=== PATIENT | female | born 1960 | race Caucasian/White ===

== ENCOUNTER → 2016-10-28 | Outpatient (CLI) | payer OTHER ==
[~2016-10-28] MED LIST: ASCO1CAP3 PO; ASPI81TA28 PO; BIO CLEANSE PO; BUDE1TAB PO; CALC-20 PO; CHOL1000 PO; DEXL60CA4 PO; FLUO20CA36 PO; MISCCAP80 PO; MODA100T17 PO; OXYC-57 PO; PLV75 PO; THYR90TA PO
[2016-10-28 17:25] LABS: BLOOD UREA NITROGEN 15 mg/dl (7-18); CALCIUM 8.6 mg/dl (8.5-10.1); CARBON DIOXIDE 30 mmol/L (21-32); CHLORIDE 103 mmol/L (98-107); CREATININE 0.94 mg/dl (0.60-1.20); GLUCOSE 97 mg/dl (70-99); POTASSIUM 3.8 mmol/L (3.5-5.1); SODIUM 140 mmol/L (136-145)
[2016-10-28 17:35] LABS: THYROID STIMULATING HORMONE 0.929 uIu/ml (0.300-4.500)
[2016-10-28 17:52] LABS: URINE APPEARANCE TURBID (CLEAR); URINE BILIRUBIN NEG (NEG); URINE COLOR YELLOW; URINE EPITHELIAL CELL AUTO 20-30 /lpf (0-5); URINE NITRITE NEG (NEG); URINE SPECIFIC GRAVITY 1.024 (1.000-1.030); UROBILINOGEN NEG (NEG)
[2016-10-28 18:08] LABS: MANUAL MICROSCOPIC REQUIRED? NO; REVIEW REQ? NO
[2016-10-29 07:08] LABS: ESTIMATED AVERAGE GLUCOSE 123 mg/dl; HA1C FLAG Normal (Normal)
== END | disposition home or self-care (01) ==
LOC: C.LABBC 14:01
PROVIDERS: ATTEND Internal Medicine Geriatric Medicine
DX: R73.01 Impaired fasting glucose (principal); R39.9 Unspecified symptoms and signs involving the genitourinary system; E55.9 Vitamin D deficiency, unspecified; R10.9 Unspecified abdominal pain; R53.83 Other fatigue

== ENCOUNTER → 2017-06-23 | Outpatient (CLI) | payer OTHER ==
[~2017-06-23] MED LIST changes: +DIAZ-165 PO; +ESCI1TAB10 PO; +MELO7.5T5 PO; -OXYC-57 PO; +ROPI0.5T15 PO
--- NOTE | 2017-06-23 12:13 | EEG Procedure Note ---
EEG Procedure Note Date of Service Jun 23, 2017. Start / End Times Start Time: 10:38 AM End Time: 10:59 AM Referring Physician Rodriguez Morse History This is a 52-year-old female with seizure-like activity. EEG for further evaluation of possible seizure etiology. Home Medication List Scheduled Ascorbic Acid (Vitamin C), 500 MG PO QPM Aspirin (Aspirin Ec), 81 MG PO DAILY Budesonide (Uceris), 9 MG PO QAM Calcium Carbonate-Vitamin D (Calcium 600 + D), 1 TAB PO Q2D Cholecalciferol (Vitamin D3), 1 TAB PO QPM Clopidogrel Bisulfate (Clopidogrel), 75 MG PO QAM Dexlansoprazole (Dexilant), 60 MG PO QPM Fluoxetine HCl (Fluoxetine HCl), 40 MG PO QPM Modafinil (Provigil), 100 MG PO AM/NOON Probiotic Product (Probiotic), 1 TAB PO QPM Thyroid ([place] Thyroid), 90 MG PO QAM [Bio Cleanse], 1-2 TAB PO QPM Description This is a 21 electrode EEG with a single channel dedicated to limited EKG. The electrodes were placed in accordance with the International 10-20 system. At the start of the recording the patient was in an awake state. Background was well organized and composed of symmetric mixed alpha and beta frequencies. There was a symmetric well-formed moderate amplitude 9 Hz posterior dominant rhythm that was reactive to eye opening and closure. Hyperventilation was not done. Intermittent photic stimulation at various frequencies produced no abnormalities. There was no state changes or sleep transients. Interpretation This is a normal awake only routine EEG. There was no electrographic seizures or epileptiform discharges. Clinical Correlation A normal EEG does not rule out epilepsy if there is a strong clinical suspicion.
== END | disposition home or self-care (01) ==
LOC: C.NEUR 10:24
PROVIDERS: ATTEND Psychiatry & Neurology Neurology
DX: R56.9 Unspecified convulsions (principal)

== ENCOUNTER 2017-08-06 06:35 | Day surgery (SDC) | payer OTHER ==
[~2017-08-06] VITALS: Ht 162.6 cm; Wt 92.7 kg
[~2017-08-06 06:35] MED LIST changes: -ASPI81TA28 PO; -BUDE1TAB PO; +CEFAZOLIN 1000MG IV PUSH 5 ML IV SCH; -FLUO20CA36 PO; +LACTATED RINGER'S 1000ML 1,000 ML IV SCH
[2017-08-06] MEDS ORDERED: LORA-741 PO (07:14)
[2017-08-06] MEDS ORDERED: CBD Oil UT (07:14)
[2017-08-06 07:19] VITALS: BP 120/78; PULSE 65; TEMP 37.1; O2SAT 96; Ht 162.6 cm; Wt 92.7 kg
[2017-08-06] MEDS ORDERED: BACITRACIN 50000 UNIT VIAL ONE (07:51)
[2017-08-06] MEDS ORDERED: LIDOCAINE HCL 1% 20 ML VIAL ONE (07:51)
--- NOTE | 2017-08-06 08:14 | History & Physical Bridge Note ---
H&P Re-Evaluation Bridge Note: I have examined the patient, reviewed the History & Physical and in the interval since the performance of the History & Physical I have noted the following changes of clinical significance: No changes noted
--- NOTE | 2017-08-06 08:14 | Procedure Note ---
Pre-Mod Sedation Assessment General Date of Moderate Sedation: Aug 06, 2017. Vital Signs: Vital Signs Past 12 Hours Date Time Temp Pulse Resp B/P (MAP) Pulse Ox O2 Delivery O2 Flow Rate FiO2 08/06/17 07:19 37.1 65 18 120/78 (92) 96 Room Air Review Cardiovascular: regular rate, rhythm, no murmur Abdomen: soft Lungs: lungs clear Airway Class: II Pre-Sedation Airway Assessment Oral Cavity: WNL Short Thick Neck: No Hx of Sleep Apnea: No Smoking Status: Former Smoker Mallampati Classification: Class II ASA Classification: Class II Procedure Planning Contraindications-for Mod Sed: None Yes Notes The planned sedation has been discussed with the patient and consent obtained. I have identified the patient, determined the appropriateness of sedation and have assessed the patient immediately prior to the procedure. All medicine(s) and interventions are by my order.
--- NOTE | 2017-08-06 08:47 | [facility] Post Operative Brief Note ---
Immediate Operative Summary Operative Date Aug 06, 2017. Pre-Operative Diagnosis cryptogenic stroke Post-Operative Diagnosis same Procedure(s) Performed linq extraction Surgeon dustin haas Baffle Mounter Surgeon(s) none Estimated Blood Loss none Findings see official report Fluids (cc crystalloids) 200cc Specimens none Drains none Anesthesia local lidocaine 20cc Complication(s) None Disposition asu
--- NOTE | 2017-08-06 08:47 | Procedure Note ---
Post-Mod Sedation Assessment General Date of Moderate Sedation Aug 06, 2017. Vital Signs: Vital Signs Past 12 Hours Date Time Temp Pulse Resp B/P (MAP) Pulse Ox O2 Delivery O2 Flow Rate FiO2 08/06/17 07:19 37.1 65 18 120/78 (92) 96 Room Air Review - Discharge Criteria Vital Signs Stable: Yes Alert/Oriented/Conversant: Yes Returned to Baseline Mental St: Yes Nausea Absent/Minimal: Yes Pain/Discomfort/Absent/Minimal: Yes Normal/Baseline Respirations: Yes Active Bleeding?: No Pt Received D/C Instructions: Yes Prescriptions Given: None Specific Proced. D/C Criteria Distal Pulses Present (Cardiac: N/A Groin site assessed-Card Cath: N/A Voided Prior To Discharge: N/A Discharged Patients Adult Escort/Transportation: Yes
--- NOTE | 2017-08-06 08:49 | Discharge Instructions ---
Discharge Instructions Procedure Procedure Date: Aug 06, 2017. Reason for Visit: *Loop Removal* Krictogenic Stroke. Discharge Discharge Date: Aug 06, 2017. Discharge Diagnosis: cryptogenic stroke Last Recorded Wt (Kilograms): 92.7 Anesthesia Post Anesthesia Instructions: If you have had General Anesthesia or IV Sedation: * Do not drive today. * Resume driving when surgeon permits. * Do not make important decisions or sign legal documents today. * Call surgeon for: 1. Temperature elevations greater than 101 degrees F. 2. Uncontrollable pain. 3. Excessive bleeding. 4. Persistent nausea and vomiting. 5. Medication intolerance (nausea, vomiting or rash). * For nausea and vomiting use only clear liquids such as: tea, soda, bouillon until nausea subsides, then gradually increase diet as tolerated. * If you have any concerns or questions, call your surgeon's office. If physician is unavailable and it is an emergency, call 911 or go to the nearest emergency room. Instructions Activity Recommendations: resume regular activity, shower/bathe limit (can shower tomorrow let water run over the incision do not scrub it) Recommended Home Diet: resume previous diet Allergies: Coded Allergies: Levofloxacin (Verified Allergy, Severe, ANAPHYLAXIS, 08/06/17) Morphine (Verified Allergy, Severe, ANAPHYLAXIS, 08/06/17) Penicillins (Verified Allergy, Intermediate, AMPICILLIN,AMOXICILLIN--Hives , 08/06/17) Fentanyl (Verified Allergy, Unknown, "VERY SENSITIVE TO" FENTANYL, ) Milk (Verified Allergy, Unknown, RASH, 08/06/17) Sulfa Antibiotics (Verified Adverse Reaction, Intermediate, GI SYMPTOMS, 08/06/17) Provider Instructions ACTIVITY RECOMMENDATIONS: * None SPECIAL CARE INSTRUCTIONS: * If bleeding occurs, apply direct pressure to area for 5 minutes. * Call your doctor if you have severe pain, fever, drainage or bleeding at site. * Keep dry for 24 hours. * Keep any scheduled doctor's appointment. * Implant Card - hand held device with website information given. SKIN IRRITATION: * You may experience some redness and/or swelling in the area where radiation was administered. If any skin irritation occurs, please contact your family physician. FOLLOW UP VISIT: Keep any scheduled doctor appointments. Follow Up Mi Booker Recommendations: Call your doctor if: * Temperature above 101 degrees * Pain not relieved by pain medicine ordered * There is increased drainage or redness from any incision * You have any unanswered questions or concerns. Your Doctors Instructions noted above were prepared by provider Jeimy Espinoza. Patient Signature Section: Patient Instructions Signature Page Marylou Jessica Patient (or Guardian) Signature/Date: I have read and understand the instructions given to me by my caregivers. Caregiver/RN/Doctor Signature/Date: The above-named patient and/or guardian has received patient instructions on this date. + Original Patient Signature Page (only) stays with chart. Please make copy for patient.
[2017-08-06 08:55] VITALS: BP 120/65; PULSE 53; TEMP 36.7; O2SAT 97
--- NOTE | 2017-08-06 09:07 | OPERATIVE REPORT ---
DATE OF OPERATION: 08/06/2017 PREOPERATIVE DIAGNOSIS: Cryptogenic stroke. POSTOPERATIVE DIAGNOSIS: Same. PROCEDURE: LINQ extraction. SURGEON: Dr. Jeimy Espinoza. SANDING MACHINE OPERATOR: None. ANESTHESIA: Local anesthesia only, 20 mL of 1% lidocaine. BLOOD LOSS: None. COMPLICATIONS: None. CONDITION: Stable. URINE OUTPUT: Not applicable. SPECIMENS: None. FINDINGS: See below. DRAINS: None. INDICATIONS: This 56-year-old female who has a past medical history for cryptogenic stroke and she underwent LINQ insertion about a year ago. She was found that the etiology of the stroke was not Afib or any arrhythmia. 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 CONSENT: Consent was obtained prior to the patient going into the electrophysiology lab. The patient was informed of risks, benefits, alternatives to the procedure. Risks include but not limited to bleeding and infection. The patient understood these risks and agreed to the procedure as planned. Informed consent was obtained. DESCRIPTION OF THE PROCEDURE: The patient was brought into the electrophysiology lab in fasting state. She was connected to continuous supervisor sunglasses. A time out was performed to ensure patient identity and procedure correctly. The patient was prepped and draped over the left sternal border in the normal surgical standard fashion. [place] precautions were maintained throughout the procedure. Twenty mL of 1% lidocaine local was given over the prior surgical incision and infiltrated where the LINQ area was for local anesthesia. Then incision was made over the prior surgical incision then using blunt dissection the LINQ was extracted out being pulled out with a Loan clamp. The pocked was flushed with bacitracin saline wash and then the incision was closed with 3-0 interrupted suture followed by a 4-0 Monocryl running stitch and Dermabond was applied. IMPRESSION: Successful LINQ extraction. PLAN: She can be discharged home. She can shower tomorrow. No other restrictions. She can continue her home medications and follow with general cardiology. I attest to the content of the Intraoperative Record and any orders documented therein. Any exceptions are noted below. JACKIED
[2017-08-06 09:15] VITALS: BP 120/65; PULSE 61; TEMP 36.5; O2SAT 96
[2017-08-06] MEDS ORDERED: NURSING VERBAL MED ORDER ONE (12:30)
== END 2017-08-06 09:20 | disposition home or self-care (01) ==
LOC: C.ACU 06:35
PROVIDERS: ATTEND Internal Medicine
DX: I63.9 Cerebral infarction, unspecified (principal); I69.398 Other sequelae of cerebral infarction; R20.9 Unspecified disturbances of skin sensation; G47.33 Obstructive sleep apnea (adult) (pediatric); E05.00 Thyrotoxicosis with diffuse goiter without thyrotoxic crisis or storm; E78.5 Hyperlipidemia, unspecified; Z88.5 Allergy status to narcotic agent; Z88.0 Allergy status to penicillin; Z88.2 Allergy status to sulfonamides; Z79.899 Other long term (current) drug therapy

== ENCOUNTER → 2017-09-27 | Day surgery (SDC) | payer OTHER ==
[2017-09-21 14:02] VITALS: BMI 34.0
[~2017-09-27] VITALS: Ht 162.6 cm; Wt 90.9 kg
[~2017-09-27] MED LIST changes: +ASA PO; +ASCA500 PO; +CALC600T9 PO; +CBD Oil UT; -CEFAZOLIN 1000MG IV PUSH 5 ML IV SCH; +CLOP1TAB15 PO; +ESCI1TAB18 PO; +GABA1CAP PO; -LACTATED RINGER'S 1000ML 1,000 ML IV SCH; +LIDOCAINE HCL 2% 2 ML VIAL (20MG/ML) ONE; +LORA-741 PO; +MIDAZOLAM HCL 1 MG/ML 2ML VIAL ONE; +MOME100A INH; +ONDANSETRON INJ 2 MG/ML 2 ML VIAL ONE; +PROB1TAB16 PO; +PROPOFOL IV EMULSION 10 MG/ML 20 ML VIAL IV ONE; +SODIUM CHLORIDE 0.9% 500ML 500 ML IV ONE
[2017-09-27 09:40] VITALS: Ht 162.6 cm; Wt 90.9 kg
--- NOTE | 2017-09-27 10:01 | Endo History and Physical ---
History & Physical Date of Service: Sep 27, 2017. Chief Complaint: Bright red rectal bleeding Referring Physician: Dr. Tushar Holloway History of Present Illness 56 yo CF who presents for colonoscopy secondary to bright red rectal bleeding. Past Medical History Gastrointestinal Disorder, Anxiety, Reflux, High Cholesterol, Sleep Apnea, COPD , Thyroid Disease, CVA/TIA Past Surgical History Hx Cardiac Surgery: Yes (HEART CATH, NO STENTS; LOOP RECORDER PLACED AND REMOVED) Hx Internal Defibrillator: No Hx Pacemaker: No Hx Abdominal Surgery: Yes (ANGELY, PARTIAL COLON RESECTION, DEAN BSO) Hx of Implantable Prosthesis: No Hx Post-Op Nausea and Vomiting: No Hx Cancer Surgery: No Hx Thoracic Surgery: No Hx Orthopedic: Yes (RT RCR, LT VS RT(?) KNEE SCOPE) Hx Urinary Tract Surgery: No Family History Colon CA, IBD Social History Smoking Status: Former Smoker Hx Substance Use: No Hx Alcohol Use: No Allergies Coded Allergies: Levofloxacin (Verified Allergy, Severe, ANAPHYLAXIS, 09/27/17) Morphine (Verified Allergy, Severe, ANAPHYLAXIS, 09/27/17) Penicillins (Verified Allergy, Intermediate, AMPICILLIN,AMOXICILLIN--Hives , 09/27/17) Cephalexin (Verified Allergy, Unknown, RASH, 09/27/17) Fentanyl (Verified Allergy, Unknown, "VERY SENSITIVE TO" FENTANYL, ) Milk (Verified Allergy, Unknown, RASH, 09/27/17) Sulfa Antibiotics (Verified Adverse Reaction, Intermediate, GI SYMPTOMS, 09/27/17) Current Medications Reported Home Medications Medications Dose Route/Sig Max Daily Dose Days Date Category [Asa] 81 PO QD 09/27/17 Reported Requip (Ropinirole HCl) 0.5 Mg Tab 0.5 Mg PO HS 09/21/17 Reported Probiotic (Probiotic Product) 1 Tab Tab 1 Tab PO DAILY 09/21/17 Reported Provigil (Modafinil) 100 Mg Tab 2 Tabs PO QAM 09/21/17 Reported Mobic (Meloxicam) 7.5 Mg Tab 7.5 Mg PO QAM 09/21/17 Reported Ativan (Lorazepam) 0.5 Mg Tab 0.5 Mg PO HS PRN 09/21/17 Reported Lexapro (Escitalopram Oxalate) 20 Mg Tab 20 Mg PO QPM 09/21/17 Reported Neurontin (Gabapentin) 100 Mg Cap 2 Cap PO HS 09/21/17 Reported Dulera 100/5 Mcg (Mometasone Furoate-Formoterol) 1 Aer Aer 1 Aer INH BID PRN 09/21/17 Reported [place] Thyroid (Thyroid) 90 Mg Tab 1 Tab PO QAM 09/21/17 Reported Valium (Diazepam) 5 Mg Tab 5 Mg PO TID PRN 09/21/17 Reported Dexilant (Dexlansoprazole) 60 Mg Cap 1 Cap PO QPM 09/21/17 Reported Plavix (Clopidogrel Bisulfate) 75 Mg Tab 75 Mg PO QAM 09/21/17 Reported Vitamin D3 (Cholecalciferol) 1,000 Unit Tab 1 Tab PO DAILY 09/21/17 Reported Calcium + D (Calcium Carbonate-Vitamin D) 1 Tab Tab 1 Tab PO DAILY 09/21/17 Reported Vitamin C (Ascorbic Acid) 500 Mg Tab 1 Tab PO DAILY 09/21/17 Reported [CBD Oil] 3 Drops [place] DAILY 08/06/17 Reported Vital Signs Weight (Kilograms): 90.91 Height (Feet): 5 Height (Inches): 4 Physical Exam General Appearance: WD/WN, no apparent distress Respiratory/Chest: Auscultation: breath sounds normal Cardiovascular: Heart Auscultation: RRR Abdomen: Bowel Sounds: normal Inspection & Palpation: soft, non-distended, no tenderness, guarding & rebound Assessment and Plan Assessment: 56 yo CF who presents for colonoscopy secondary to bright red rectal bleeding. Plan: Proceed with colonoscopy.
--- NOTE | 2017-09-27 10:32 | Discharge Instructions ---
Endoscopy Patient Instructions Date / Procedure(s) Performed Sep 27, 2017. Colonoscopy, EGD Allergy Information Coded Allergies: Levofloxacin (Verified Allergy, Severe, ANAPHYLAXIS, 09/27/17) Morphine (Verified Allergy, Severe, ANAPHYLAXIS, 09/27/17) Cephalexin (Verified Allergy, Intermediate, RASH, 09/27/17) Milk (Verified Allergy, Intermediate, RASH, 09/27/17) Penicillins (Verified Allergy, Intermediate, AMPICILLIN,AMOXICILLIN--Hives , 09/27/17) Fentanyl (Verified Adverse Reaction, Intermediate, "VERY SENSITIVE TO" FENTANYL, 09/27/17) Sulfa Antibiotics (Verified Adverse Reaction, Intermediate, GI SYMPTOMS, 09/27/17) Discharge Date / Findings Sep 27, 2017. Diverticulosis Internal hemorrhoids Proctosigmoiditis s/p biopsies Random colon biopsies Medication Instructions Stopped Medication(s): PLAVIX and ASA OK to resume all medications today as prescribed Reported Home Medications Medications Dose Route/Sig Max Daily Dose Days Date Category [Asa] 81 PO QD 09/27/17 Reported Requip (Ropinirole HCl) 0.5 Mg Tab 0.5 Mg PO HS 09/21/17 Reported Probiotic (Probiotic Product) 1 Tab Tab 1 Tab PO DAILY 09/21/17 Reported Provigil (Modafinil) 100 Mg Tab 2 Tabs PO QAM 09/21/17 Reported Mobic (Meloxicam) 7.5 Mg Tab 7.5 Mg PO QAM 09/21/17 Reported Ativan (Lorazepam) 0.5 Mg Tab 0.5 Mg PO HS PRN 09/21/17 Reported Lexapro (Escitalopram Oxalate) 20 Mg Tab 20 Mg PO QPM 09/21/17 Reported Neurontin (Gabapentin) 100 Mg Cap 2 Cap PO HS 09/21/17 Reported Dulera 100/5 Mcg (Mometasone Furoate-Formoterol) 1 Aer Aer 1 Aer INH BID PRN 09/21/17 Reported [place] Thyroid (Thyroid) 90 Mg Tab 1 Tab PO QAM 09/21/17 Reported Valium (Diazepam) 5 Mg Tab 5 Mg PO TID PRN 09/21/17 Reported Dexilant (Dexlansoprazole) 60 Mg Cap 1 Cap PO QPM 09/21/17 Reported Plavix (Clopidogrel Bisulfate) 75 Mg Tab 75 Mg PO QAM 09/21/17 Reported Vitamin D3 (Cholecalciferol) 1,000 Unit Tab 1 Tab PO DAILY 09/21/17 Reported Calcium + D (Calcium Carbonate-Vitamin D) 1 Tab Tab 1 Tab PO DAILY 09/21/17 Reported Vitamin C (Ascorbic Acid) 500 Mg Tab 1 Tab PO DAILY 09/21/17 Reported [CBD Oil] 3 Drops UT DAILY 08/06/17 Reported Provider Instructions Activity Restrictions - No exercising or heavy lifting for 24 hours. - Do not drink alcohol the day of the procedure. - Do not drive a car or operate machinery until the day after the procedure. - Do not make any important decisions or sign important papers in 24 hours after the procedure. Following Day: - Return to full activity which may include returning to work/school. Diet Start your diet with liquids and light foods (jello, soup, juice, toast). Then eat your usual diet if not nauseated. Treatment For Common After Affects For mild abdominal pain, bloating, or excessive gas: - Rest - Eat lightly - Lie on right side Follow-Up Information Follow-up with LEVY DANIELS as scheduled Anesthesia Information What You Should Know You have had a procedure that required some medicine to reduce anxiety and discomfort. This treatment is called moderate sedation. After receiving the treatment, you may be sleepy, but you will be able to breathe on your own. The effects of the treatment may last for several hours. Follow these instructions along with Activity/Diet recommendations noted above: * Do NOT do anything where dizziness or clumsiness would be dangerous. * Rest quietly at home today, then you can be up and about tomorrow. * Have a responsible person stay with you the rest of today. * You may have had an I.V. today. If so, you may take the dressing off later today. Recommendations Call your doctor if: * Trouble breathing * Continuous vomiting for more than 24 hours * Temperature above 101 degrees * Severe abdominal pain or bloating * Pain not relieved by pain medicine ordered * There is increased drainage or redness from any incision * A large amount of rectal bleeding greater than 2-3 tablespoons. (If you had a polyp/s removed or have hemorrhoids, a small amount of blood - from the rectum is to be expected.) * You have any unanswered questions or concerns. IN THE EVENT OF A SERIOUS EMERGENCY, GO TO THE NEAREST EMERGENCY ROOM Your discharge instructions were prepared by provider Martin G. Case. Patient Instructions Signature Page Marylou Lopez Patient (or Guardian) Signature/Date: I have read and understand the instructions given to me by my caregivers. Caregiver/RN/Doctor Signature/Date: The above-named patient and/or guardian has received patient instructions on this date. + Original Patient Signature Page (only) stays with chart. Please make copy for patient.
--- NOTE | 2017-09-27 10:44 | GI REPORT ---
Procedure Date: 09/27/2017 9:50 AM Procedure: Colonoscopy Indications: Rectal bleeding Medicines: Monitored Anesthesia Care Complications: No immediate complications. Estimated Blood Loss: Estimated blood loss: none. Procedure: Pre-Anesthesia Assessment: - Prior to the procedure, a History and Physical was performed, and patient medications and allergies were reviewed. The patient's tolerance of previous anesthesia was also reviewed. The risks and benefits of the procedure and the sedation options and risks were discussed with the patient. All questions were answered, and informed consent was obtained. Prior Anticoagulants: The patient last took aspirin 1 day and Plavix (clopidogrel) 5 days prior to the procedure. ASA Grade Assessment: III - A patient with severe systemic disease. After reviewing the risks and benefits, the patient was deemed in satisfactory condition to undergo the procedure. After I obtained informed consent, the scope was passed under direct vision. Throughout the procedure, the patient's blood pressure, pulse, and oxygen saturations were monitored continuously. The scope was introduced through the anus and advanced to the terminal ileum. The colonoscopy was performed without difficulty. The patient tolerated the procedure well. The quality of the bowel preparation was good. The terminal ileum, ileocecal valve, appendiceal orifice, and rectum were photographed. Findings: The perianal and digital rectal examinations were normal. Localized mild inflammation characterized by erosions and erythema was found in the rectum and in the sigmoid colon. Biopsies were taken with a cold forceps for histology. Several random biopsies were obtained with cold forceps for histology randomly in the descending colon, in the transverse colon and in the ascending colon. Multiple small-mouthed diverticula were found in the sigmoid colon. Non-bleeding internal hemorrhoids were found during retroflexion. The hemorrhoids were small. Impression: - Localized mild inflammation was found in the rectum and in the sigmoid colon secondary to colitis. Biopsied. - Diverticulosis in the sigmoid colon. - Non-bleeding internal hemorrhoids. - Several random biopsies were obtained in the descending colon, in the transverse colon and in the ascending colon. Recommendation: - Resume previous diet. - Continue present medications. - Repeat colonoscopy for surveillance based on pathology results. - Return to primary care physician as previously scheduled. Martin Arellano DO 09/27/2017 10:44:01 AM This report has been signed electronically. Note Initiated On: 09/27/2017 9:50 AM I attest to the content of the Intraoperative Record and orders documented therein, exceptions below
--- NOTE | 2017-09-27 10:52 | Anesthesiology Progress Note ---
Anesthesia Post Op Note Date & Time Sep 27, 2017 at 10:52 Vital Signs Pain Intensity: 3 Vital Signs Past 12 Hours Date Time Temp Pulse Resp B/P (MAP) Pulse Ox O2 Delivery O2 Flow Rate FiO2 09/27/17 10:31 58 16 92/50 (64) 96 Room Air 09/27/17 10:03 36.5 92 20 132/69 (90) 97 Room Air
[2017-09-27 11:00] VITALS: BP 113/67; PULSE 59; O2SAT 97
== END | disposition home or self-care (01) ==
LOC: C.GI 09:10
PROVIDERS: ATTEND Internal Medicine
DX: K62.5 Hemorrhage of anus and rectum (principal); K57.30 Diverticulosis of large intestine without perforation or abscess without bleeding; K64.8 Other hemorrhoids; K21.9 Gastro-esophageal reflux disease without esophagitis; F41.9 Anxiety disorder, unspecified; E78.00 Pure hypercholesterolemia, unspecified; K22.70 Barrett's esophagus without dysplasia; J44.9 Chronic obstructive pulmonary disease, unspecified; E03.9 Hypothyroidism, unspecified; R56.9 Unspecified convulsions; G47.33 Obstructive sleep apnea (adult) (pediatric); Z86.73 Personal history of transient ischemic attack (TIA), and cerebral infarction without residual deficits; Z90.49 Acquired absence of other specified parts of digestive tract; Z90.710 Acquired absence of both cervix and uterus; Z80.0 Family history of malignant neoplasm of digestive organs; Z87.891 Personal history of nicotine dependence; Z88.0 Allergy status to penicillin; Z88.1 Allergy status to other antibiotic agents; Z88.2 Allergy status to sulfonamides; Z79.82 Long term (current) use of aspirin; Z86.19 Personal history of other infectious and parasitic diseases

== ENCOUNTER → 2017-10-29 | Outpatient (CLI) | payer OTHER ==
[~2017-10-29] MED LIST changes: -ASCO1CAP3 PO; -BIO CLEANSE PO; -CALC-20 PO; -ESCI1TAB10 PO; -LIDOCAINE HCL 2% 2 ML VIAL (20MG/ML) ONE; -MIDAZOLAM HCL 1 MG/ML 2ML VIAL ONE; -MISCCAP80 PO; -ONDANSETRON INJ 2 MG/ML 2 ML VIAL ONE; -PLV75 PO; -PROPOFOL IV EMULSION 10 MG/ML 20 ML VIAL IV ONE; -SODIUM CHLORIDE 0.9% 500ML 500 ML IV ONE
[2017-10-29 16:54] LABS: BASO % 0.8 %; BASO ABS # 0.07 K/uL (0-0.2); EOS % 3.6 %; HEMATOCRIT 41.9 % (37-47); HEMOGLOBIN 13.6 g/dL (12.0-16.0); IG# 0.03 K/uL (0.00-0.02); LYMPH % 27.5 %; LYMPH ABS # 2.27 K/uL (1.2-3.4); MEAN CELL VOLUME 94.6 fL (80-100); MEAN CORPUSCULAR HEMOGLOBIN 30.7 pg (25-34); MEAN CORPUSCULAR HGB CONC 32.5 g/dl (32-36); MEAN PLATELET VOLUME 9.6 fL (7.4-10.4); MONO % 7.3 %; NEUT % 60.4 %; NEUT ABS # 4.97 K/uL (1.4-6.5); PLATELET COUNT 308 K/uL (130-400); RED CELL DISTRIBUTION WIDTH CV 14.4 % (11.5-14.5); RED CELL DISTRIBUTION WIDTH SD 49.4 fL (36.4-46.3); WHITE BLOOD COUNT 8.24 K/uL (4.8-10.8)
[2017-10-29 17:07] LABS: ALBUMIN 3.4 gm/dl (3.4-5.0); ALT/SGPT 20 U/L (12-78); BLOOD UREA NITROGEN 16 mg/dl (7-18); CARBON DIOXIDE 27 mmol/L (21-32); CHOLESTEROL 219 mg/dl (0-200); CREATININE 1.08 mg/dl (0.60-1.20); GLUCOSE 131 mg/dl (70-99); POTASSIUM 3.8 mmol/L (3.5-5.1); SODIUM 138 mmol/L (136-145)
[2017-10-29 17:16] LABS: ALKALINE PHOSPHATASE 100 U/L (45-117); AST/SGOT 13 U/L (15-37); LDL CHOLESTEROL CALCULATED 133 mg/dl; TOTAL PROTEIN 7.1 gm/dl (6.4-8.2)
== END | disposition home or self-care (01) ==
LOC: C.LABBC 14:24
PROVIDERS: ATTEND Internal Medicine
DX: E03.9 Hypothyroidism, unspecified (principal); K52.9 Noninfective gastroenteritis and colitis, unspecified; E78.5 Hyperlipidemia, unspecified; F43.20 Adjustment disorder, unspecified; I63.9 Cerebral infarction, unspecified; R53.83 Other fatigue; R73.09 Other abnormal glucose; F39 Unspecified mood [affective] disorder; Z68.34 Body mass index [BMI] 34.0-34.9, adult

== ENCOUNTER → 2017-12-28 | Outpatient (CLI) | payer OTHER ==
[~2017-12-28] MED LIST changes: +GABA100C13 PO; -GABA1CAP PO
== END | disposition home or self-care (01) ==
LOC: C.LAB 16:19
PROVIDERS: ATTEND Registered Nurse
DX: E03.9 Hypothyroidism, unspecified (principal); Z87.19 Personal history of other diseases of the digestive system; K52.9 Noninfective gastroenteritis and colitis, unspecified; K62.5 Hemorrhage of anus and rectum

== ENCOUNTER → 2018-02-01 | Day surgery (SDC) | payer OTHER ==
[2018-01-26 13:52] VITALS: Ht 162.6 cm; Wt 93.2 kg
[~2018-02-01] VITALS: Ht 162.6 cm; Wt 93.2 kg
[~2018-02-01] MED LIST changes: -ASCA500 PO; -CALC600T9 PO; -CBD Oil UT; +COEN100C7 PO; -DIAZ-165 PO; +LIDOCAINE HCL 2% 2 ML VIAL (20MG/ML) ONE; +PROPOFOL IV EMULSION 10 MG/ML 20 ML VIAL IV ONE; +SODIUM CHLORIDE 0.9% 500ML 500 ML IV ONE; +THY/120 PO
--- NOTE | 2018-02-01 11:43 | Endo History and Physical ---
History & Physical Date of Service: Feb 01, 2018. Chief Complaint: Acute Diverticulitis Referring Physician: Tushar Holloway History of Present Illness 57 yo CF who presents for colonoscopy secondary to acute diverticulitis. Past Medical History Gastrointestinal Disorder, Anxiety, Reflux, High Cholesterol, Sleep Apnea, COPD , Thyroid Disease, CVA/TIA Past Surgical History Hx Cardiac Surgery: Yes (HEART CATH, NO STENTS; LOOP RECORDER PLACED AND REMOVED) Hx Internal Defibrillator: No Hx Pacemaker: No Hx Abdominal Surgery: Yes (ANGELY, PARTIAL COLON RESECTION, DEAN BSO, APPENDECTOMY) Hx of Implantable Prosthesis: No Hx Post-Op Nausea and Vomiting: No Hx Cancer Surgery: No Hx Thoracic Surgery: No Hx Orthopedic: Yes (RT RCR, LT VS RT(?) KNEE SCOPE, RT KNEE MENSCIUS REPAIR) Hx Urinary Tract Surgery: No Family History Colon CA, IBD Social History Smoking Status: Former Smoker Hx Substance Use: No Hx Alcohol Use: No Allergies Coded Allergies: Levofloxacin (Verified Allergy, Severe, ANAPHYLAXIS, 01/26/18) Morphine (Verified Allergy, Severe, ANAPHYLAXIS, 01/26/18) Cephalexin (Verified Allergy, Intermediate, RASH, 01/26/18) Milk (Verified Allergy, Intermediate, RASH, 01/26/18) Penicillins (Verified Allergy, Intermediate, AMPICILLIN,AMOXICILLIN--Hives , 01/26/18) Fentanyl (Verified Adverse Reaction, Intermediate, "VERY SENSITIVE TO" FENTANYL, 01/26/18) Sulfa Antibiotics (Verified Adverse Reaction, Intermediate, GI SYMPTOMS, ) Current Medications Reported Home Medications Medications Dose Route/Sig Max Daily Dose Days Date Category Dose Instructions [place] Thyroid (Thyroid) 120 Mg Tab 1 Tab PO Q2D 01/26/18 Reported Coq10 (Coenzyme Q10 (Ubidecarenone)) 100 Mg Cap 1 Tab PO QPM 01/26/18 Reported Requip (Ropinirole HCl) 0.5 Mg Tab 0.5 Mg PO HS 09/21/17 Reported Probiotic (Probiotic Product) 1 Tab Tab 1 Tab PO DAILY 09/21/17 Reported Provigil (Modafinil) 100 Mg Tab 2 Tabs PO QAM 09/21/17 Reported Mobic (Meloxicam) 7.5 Mg Tab 7.5 Mg PO QPM 09/21/17 Reported Ativan (Lorazepam) 0.5 Mg Tab 0.5 Mg PO HS PRN 09/21/17 Reported Lexapro (Escitalopram Oxalate) 20 Mg Tab 20 Mg PO QPM 09/21/17 Reported Neurontin (Gabapentin) 100 Mg Cap 2 Cap PO HS 09/21/17 Reported Dulera 100/5 Mcg (Mometasone Furoate-Formoterol) 1 Aer Aer 1 Aer INH BID PRN 09/21/17 Reported [place] Thyroid (Thyroid) 90 Mg Tab 1 Tab PO Q2D 09/21/17 Reported ALTERNATES BETWEEN 90MG AND 120MG EVERY OTHER DAY Dexilant (Dexlansoprazole) 60 Mg Cap 1 Cap PO QPM 09/21/17 Reported Plavix (Clopidogrel Bisulfate) 75 Mg Tab 75 Mg PO QAM 09/21/17 Reported Vitamin D3 (Cholecalciferol) 1,000 Unit Tab 1 Tab PO DAILY 09/21/17 Reported Vital Signs Weight (Kilograms): 93.18 Height (Feet): 5 Height (Inches): 4 Physical Exam General Appearance: WD/WN, no apparent distress Respiratory/Chest: Auscultation: breath sounds normal Cardiovascular: Heart Auscultation: RRR Abdomen: Bowel Sounds: normal Inspection & Palpation: soft, non-distended, no tenderness, guarding & rebound Assessment and Plan Assessment: 57 yo CF who presents for colonoscopy secondary to acute diverticulitis. Plan: Proceed with colonoscopy.
--- NOTE | 2018-02-01 12:49 | GI REPORT ---
Procedure Date: 02/01/2018 12:00 PM Procedure: Colonoscopy Indications: Follow-up of diverticulitis Medicines: Monitored Anesthesia Care Complications: No immediate complications. Estimated Blood Loss: Estimated blood loss: none. Procedure: Pre-Anesthesia Assessment: - Prior to the procedure, a History and Physical was performed, and patient medications and allergies were reviewed. The patient's tolerance of previous anesthesia was also reviewed. The risks and benefits of the procedure and the sedation options and risks were discussed with the patient. All questions were answered, and informed consent was obtained. Prior Anticoagulants: The patient last took aspirin 1 day and Plavix (clopidogrel) 3 days prior to the procedure. ASA Grade Assessment: III - A patient with severe systemic disease. After reviewing the risks and benefits, the patient was deemed in satisfactory condition to undergo the procedure. After I obtained informed consent, the scope was passed under direct vision. Throughout the procedure, the patient's blood pressure, pulse, and oxygen saturations were monitored continuously. The scope was introduced through the anus and advanced to the terminal ileum. The colonoscopy was performed without difficulty. The patient tolerated the procedure well. The quality of the bowel preparation was good. The terminal ileum, ileocecal valve, appendiceal orifice, and rectum were photographed. Findings: The perianal and digital rectal examinations were normal. The terminal ileum appeared normal. Biopsies were taken with a cold forceps for histology. A localized area of mildly altered vascular and erythematous mucosa was found in the sigmoid colon. Biopsies were taken with a cold forceps for histology. Multiple small-mouthed diverticula were found in the sigmoid colon. Multiple random biopsies were obtained with cold forceps for histology in the descending colon, in the transverse colon and in the ascending colon. Non-bleeding internal hemorrhoids were found during retroflexion. The hemorrhoids were small. Impression: - The examined portion of the ileum was normal. Biopsied. - Altered vascular and erythematous mucosa in the sigmoid colon. Biopsied. - Diverticulosis in the sigmoid colon. - Non-bleeding internal hemorrhoids. - Multiple random biopsies were obtained in the descending colon, in the transverse colon and in the ascending colon. Recommendation: - Resume previous diet. - Continue present medications. - Repeat colonoscopy for surveillance based on pathology results. - Return to primary care physician as previously scheduled. Martin Arellano DO 02/01/2018 12:49:22 PM This report has been signed electronically. Note Initiated On: 02/01/2018 12:00 PM I attest to the content of the Intraoperative Record and orders documented therein, exceptions below
[2018-02-01 13:02] VITALS: BP 123/75; PULSE 62; O2SAT 99
--- NOTE | 2018-02-01 13:07 | Anesthesiology Progress Note ---
Anesthesia Post Op Note Date & Time Feb 01, 2018 at 13:07 Vital Signs Pain Intensity: 0 Vital Signs Past 12 Hours Date Time Temp Pulse Resp B/P (MAP) Pulse Ox O2 Delivery O2 Flow Rate FiO2 02/01/18 13:02 62 20 123/75 (91) 99 Room Air 02/01/18 12:47 36.0 60 18 102/70 (81) 99 Room Air 02/01/18 12:11 36.9 59 20 114/82 (93) 97 Room Air Notes Mental Status: alert / awake / arousable, participated in evaluation Pt Amnestic to Procedure: Yes Nausea / Vomiting: adequately controlled Pain: adequately controlled Airway Patency, RR, SpO2: stable & adequate BP & HR: stable & adequate Hydration State: stable & adequate Anesthetic Complications: no major complications apparent
--- NOTE | 2018-02-01 13:09 | Discharge Instructions ---
Endoscopy Patient Instructions Date / Procedure(s) Performed Feb 01, 2018. Colonoscopy Allergy Information Coded Allergies: Levofloxacin (Verified Allergy, Severe, ANAPHYLAXIS, 01/26/18) Morphine (Verified Allergy, Severe, ANAPHYLAXIS, 01/26/18) Cephalexin (Verified Allergy, Intermediate, RASH, 01/26/18) Milk (Verified Allergy, Intermediate, RASH, 01/26/18) Penicillins (Verified Allergy, Intermediate, AMPICILLIN,AMOXICILLIN--Hives , 01/26/18) Fentanyl (Verified Adverse Reaction, Intermediate, "VERY SENSITIVE TO" FENTANYL, 01/26/18) Sulfa Antibiotics (Verified Adverse Reaction, Intermediate, GI SYMPTOMS, ) Discharge Date / Findings Feb 01, 2018. Non-specific colitis s/p biopsies Random colon biopsies Terminal ileum biopsies Diverticulosis Internal hemorrhoids Medication Instructions Stopped Medication(s): Patient has held everything this am. OK to resume all medications today as prescribed Reported Home Medications Medications Dose Route/Sig Max Daily Dose Days Date Category Dose Instructions [place] Thyroid (Thyroid) 120 Mg Tab 1 Tab PO Q2D 01/26/18 Reported Coq10 (Coenzyme Q10 (Ubidecarenone)) 100 Mg Cap 1 Tab PO QPM 01/26/18 Reported [Asa] 81 PO QD 09/27/17 Reported Requip (Ropinirole HCl) 0.5 Mg Tab 0.5 Mg PO HS 09/21/17 Reported Probiotic (Probiotic Product) 1 Tab Tab 1 Tab PO DAILY 09/21/17 Reported Provigil (Modafinil) 100 Mg Tab 2 Tabs PO QAM 09/21/17 Reported Mobic (Meloxicam) 7.5 Mg Tab 7.5 Mg PO QPM 09/21/17 Reported Ativan (Lorazepam) 0.5 Mg Tab 0.5 Mg PO HS PRN 09/21/17 Reported Lexapro (Escitalopram Oxalate) 20 Mg Tab 20 Mg PO QPM 09/21/17 Reported Neurontin (Gabapentin) 100 Mg Cap 2 Cap PO HS 09/21/17 Reported Dulera 100/5 Mcg (Mometasone Furoate-Formoterol) 1 Aer Aer 1 Aer INH BID PRN 09/21/17 Reported [place] Thyroid (Thyroid) 90 Mg Tab 1 Tab PO Q2D 09/21/17 Reported ALTERNATES BETWEEN 90MG AND 120MG EVERY OTHER DAY Dexilant (Dexlansoprazole) 60 Mg Cap 1 Cap PO QPM 09/21/17 Reported Plavix (Clopidogrel Bisulfate) 75 Mg Tab 75 Mg PO QAM 09/21/17 Reported Vitamin D3 (Cholecalciferol) 1,000 Unit Tab 1 Tab PO DAILY 09/21/17 Reported Provider Instructions Activity Restrictions - No exercising or heavy lifting for 24 hours. - Do not drink alcohol the day of the procedure. - Do not drive a car or operate machinery until the day after the procedure. - Do not make any important decisions or sign important papers in 24 hours after the procedure. Following Day: - Return to full activity which may include returning to work/school. Diet Start your diet with liquids and light foods (jello, soup, juice, toast). Then eat your usual diet if not nauseated. Treatment For Common After Affects For mild abdominal pain, bloating, or excessive gas: - Rest - Eat lightly - Lie on right side Follow-Up Information Follow-up with Dr. Tushar Holloway as scheduled Anesthesia Information What You Should Know You have had a procedure that required some medicine to reduce anxiety and discomfort. This treatment is called moderate sedation. After receiving the treatment, you may be sleepy, but you will be able to breathe on your own. The effects of the treatment may last for several hours. Follow these instructions along with Activity/Diet recommendations noted above: * Do NOT do anything where dizziness or clumsiness would be dangerous. * Rest quietly at home today, then you can be up and about tomorrow. * Have a responsible person stay with you the rest of today. * You may have had an I.V. today. If so, you may take the dressing off later today. Recommendations Call your doctor if: * Trouble breathing * Continuous vomiting for more than 24 hours * Temperature above 101 degrees * Severe abdominal pain or bloating * Pain not relieved by pain medicine ordered * There is increased drainage or redness from any incision * A large amount of rectal bleeding greater than 2-3 tablespoons. (If you had a polyp/s removed or have hemorrhoids, a small amount of blood - from the rectum is to be expected.) * You have any unanswered questions or concerns. IN THE EVENT OF A SERIOUS EMERGENCY, GO TO THE NEAREST EMERGENCY ROOM Your discharge instructions were prepared by provider Martin Arellano. Patient Instructions Signature Page Marylou oLpez Patient (or Guardian) Signature/Date: I have read and understand the instructions given to me by my caregivers. Caregiver/RN/Doctor Signature/Date: The above-named patient and/or guardian has received patient instructions on this date. + Original Patient Signature Page (only) stays with chart. Please make copy for patient.
== END | disposition home or self-care (01) ==
LOC: C.GI 11:28
PROVIDERS: ATTEND Internal Medicine
DX: Z09 Encounter for follow-up examination after completed treatment for conditions other than malignant neoplasm (principal); K57.30 Diverticulosis of large intestine without perforation or abscess without bleeding; K64.8 Other hemorrhoids; F41.9 Anxiety disorder, unspecified; Z86.73 Personal history of transient ischemic attack (TIA), and cerebral infarction without residual deficits; Z87.891 Personal history of nicotine dependence; Z88.0 Allergy status to penicillin; Z88.1 Allergy status to other antibiotic agents; Z88.2 Allergy status to sulfonamides; Z91.011 Allergy to milk products; Z90.89 Acquired absence of other organs; Z90.49 Acquired absence of other specified parts of digestive tract; Z80.0 Family history of malignant neoplasm of digestive organs; Z79.899 Other long term (current) drug therapy; Z79.02 Long term (current) use of antithrombotics/antiplatelets

== ENCOUNTER → 2018-02-22 | Outpatient (CLI) | payer OTHER ==
[~2018-02-22] MED LIST changes: -LIDOCAINE HCL 2% 2 ML VIAL (20MG/ML) ONE; +OPTIRAY 320 IV PRN; -PROPOFOL IV EMULSION 10 MG/ML 20 ML VIAL IV ONE; -SODIUM CHLORIDE 0.9% 500ML 500 ML IV ONE
--- NOTE | 2018-02-22 16:26 | DIAGNOSTIC IMAGING REPORT ---
ABDOMEN AND PELVIS CT WITH IV AND ORAL CONTRAST CT DOSE: 937.68 mGycm HISTORY: Acute diarrhea DIARRHEA TECHNIQUE: Multiaxial CT images of the abdomen and pelvis were performed following the use of intravenous and oral contrast. A dose lowering technique was utilized adhering to the principles of ALARA. COMPARISON STUDY: CT abdomen and pelvis 02/12/2016. FINDINGS: Emphysematous changes of the imaged lung bases. There is no pneumatosis or pneumoperitoneum identified. Imaged inferior cardiac chambers are unremarkable. Prior cholecystectomy. Liver appears unremarkable without intrahepatic biliary ductal dilation. Spleen, pancreas and adrenal glands are within normal limits. Contrast is noted within the bilateral renal collecting systems and ureters. No renal calculi or obstructive uropathy identified. Contrast is also seen within the dependent bladder which is partially decompressed. Prior hysterectomy. No adnexal mass lesions. Mild atherosclerosis of the aorta without aneurysm. There is no bulky adenopathy. No bowel obstruction. There is mild wall thickening of the mid sigmoid colon with mild pericolonic inflammatory stranding. There is prominence of the vasculature within the adjacent sigmoid mesocolon with scattered prominent enlarged lymph nodes measuring up to 5 mm in short axis. No inflamed diverticulum or drainable fluid collection. Mild colonic diverticulosis. No evidence of acute appendicitis or ascites. The soft tissues are unremarkable. The bones appear intact. IMPRESSION: 1. Mild wall thickening of the mid sigmoid colon with mild pericolonic inflammatory stranding, prominence of the adjacent sigmoid mesocolon vasculature with scattered mildly prominent pericolonic lymph nodes. These findings are suspicious for a mild infectious or inflammatory colitis. Correlation with colonoscopy recommended to exclude an underlying mucosal mass lesion. 2. Colonic diverticulosis without definite evidence of acute diverticulitis or bowel obstruction. 3. Prior cholecystectomy and hysterectomy. Electronically signed by: Cecilio Alejo M.D. 02/22/2018 4:25 PM Dictated Date/Time: 02/22/2018 4:16 PM
== END | disposition home or self-care (01) ==
LOC: C.CTS 13:48
PROVIDERS: ATTEND Nurse Practitioner
DX: R19.7 Diarrhea, unspecified (principal); K57.90 Diverticulosis of intestine, part unspecified, without perforation or abscess without bleeding; Z90.49 Acquired absence of other specified parts of digestive tract; Z90.710 Acquired absence of both cervix and uterus

== ENCOUNTER → 2018-05-26 | Outpatient (CLI) | payer OTHER ==
[~2018-05-26] MED LIST changes: +GABA-1693 PO; -GABA100C13 PO; -OPTIRAY 320 IV PRN
== END | disposition home or self-care (01) ==
LOC: C.LAB 11:33
PROVIDERS: ATTEND Internal Medicine
DX: R82.90 Unspecified abnormal findings in urine (principal)

== ENCOUNTER → 2018-05-26 | Outpatient (CLI) | payer OTHER | END | disposition home or self-care (01) | LOC: C.RDSM 10:35 | PROVIDERS: ATTEND Family Medicine Sports Medicine | DX: M25.561 Pain in right knee (principal) ==

== ENCOUNTER 2024-12-18 13:30 | Observation (INO) ==
--- NOTE | 2024-12-18 14:15 | XRay Report ---
XR chest 1V not portable CLINICAL HISTORY: Vomiting. COMPARISON STUDY: Chest CT December 22, 2023. FINDINGS: Lung volumes are normal. There is no consolidation to suggest pneumonia. A few nodular dens ities projecting over the upper lungs measure up to 7 mm. There is no pneumothorax or pleural effusio n. Cardiac size is normal. Mediastinal contours are normal. There is no evidence for pulmonary edema. Underlying emphysema is better depicted on prior CT. IMPRESSION: 1. No acute cardiopulmonary findings. 2. A few nodular densities which project over the upper lungs. These are likely artifactual however s mall pulmonary nodules or minimal airspace opacity cannot be excluded. Nonemergent chest CT is recomm ended for further evaluation. ACT 112: Negative or not required by law. Electronically signed by: Nadeem Howe M.D. 12/18/2024 2:14 PM
[2024-12-18 14:21] LABS: Basophils # (auto) 0.09 K/uL (0.00-0.20); Basophils % (auto) 1.3 %; Eosinophils % (auto) 2.9 %; Hematocrit (blood only) 38.8 % (37.0-47.0); Hemoglobin 12.4 g/dl (12.0-16.0); Immature Granulocytes # (auto) 0.02 K/uL (0.01-0.20); Immature Granulocytes % (auto) 0.3 %; Lymphocytes # (auto) 1.02 K/uL (1.20-3.40); Lymphocytes % (auto) 14.6 %; Mean Corpuscular Hemoglobin 28.3 pg (25.0-34.0); Mean Corpuscular Volume 88.6 fL (80.0-100.0); Mean Platelet Volume 9.1 fL (9.4-12.4); Monocytes # (auto) 0.51 K/uL (0.11-0.59); Monocytes % (auto) 7.3 %; Neutrophils # (auto) 5.13 K/uL (1.40-6.50); Neutrophils % (auto) 73.6 %; Platelet Count 355 K/uL (130-400); RDW Coefficient of Variation 15.2 % (11.5-14.5); RDW Standard Deviation 49.6 fL (36.4-46.3); Red Blood Count 4.38 M/uL (4.20-5.40); White Blood Count 6.97 K/ul (4.8-10.8)
[2024-12-18 14:36] LABS: Albumin Globulin Ratio 1.2 (0.9-2); Albumin Level 4.3 gm/dl (3.4-5.0); BUN Creatinine Ratio 15.5 (10-20); Bilirubin,Total 0.5 mg/dl (0.2-1.0); Calcium 9.2 mg/dl (8.6-10.3); Creatinine Clr Calc Pharmacy 61.4 ml/min; Globulin 3.6 gm/dl (2.5-4.0); Potassium 4.3 mmol/L (3.5-5.1); Total Protein 7.9 gm/dl (6.0-8.3)
--- NOTE | 2024-12-18 14:37 | Emergency Department Note ---
Impression & Plan Dysphagia, Nausea & vomiting ED Provider Note NAME: BEKAH MIRANDA AGE: 64 SEX: F : 1960 ARRIVES VIA: Walk-In INFORMANT: Patient, ED PROVIDER(S): Shakeel Nash MD CHIEF COMPLAINT: Possible food bolus MEDICAL DECISION MAKING: Patient presents with the above. Reportedly has been able to tolerate small sips of water but anytime she has any food or any solid at all the patient has been vomiting. IV was established and blood work is obtained along with a screening chest x-ray. Patient ordered IV glucagon as well as IV Zofran and 500 IV fluid bolus. Patient's blood work shows a normal white count H&H and platelet count. The patient's kidney function is unremarkable. Alk phos of 112. The patient's chest x-ray shows possibility of nodular densities in the upper lungs. Could be artifactual although could be nodules or airspace opacity. When discussed the patient states that she does have CTs through Dr. 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 She states that she does have a known history of nodules and does have scheduled CT in January. Patient was advised to make sure that she keeps this appointment. I did speak with Dr. Lin who did evaluate the patient. He recommended the patient be medically admitted and we will plan for an EGD tomorrow. I did speak the on-call hospital service Dr. Gregory the patient was admitted to the medicine service. Discussion w/ other healthcare providers: Dr. Dominguez GI Dr. Gregory inpatient medicine service Prior /Outside records reviewed: none Differential diagnosis: Esophageal web, esophageal stricture, esophageal impaction, esophageal spasm, Zenker's diverticula, globus sensation Diagnostics, as interpreted by me: ECG: None Cardiac monitoring: An order was placed for continuous cardiac monitoring. The monitor shows a rate of 75 with sinus rhythm. Patient was placed on pulse oximetry Medical decision rules: None Imaging studies: I informally interpreted the patient's chest x-ray does not show obvious pneumonia or pneumothorax with formal report to follow. HPI: Patient presents due to concern for possibility of esophageal spasm or food impaction. Patient reports that she developed symptoms on Wednesday seem to idania was okay Wednesday and then Wednesday had "quite a bad day." Patient states she was in a but tolerate anything solid. The patient is getting small amounts of liquids down. The patient has vomited several times today. Patient states that when she ever she swallows a solid she feels as though it is "Bamat right in the center my chest." Patient states that she then will subsequently vomit shortly thereafter. Patient denies any falls or trauma. She reports a prior history of an endoscopy [address] Wood and did require esophageal dilatation. PAST MEDICAL HISTORY: See Below PAST SURGICAL HISTORY: See Below SOCIAL HISTORY: See Below HOME MEDICATIONS: See Below ALLERGIES: See Below VITALS: See Below PHYSICAL EXAMINATION: GENERAL: NAD, non-toxic. EYE EXAM: Normal conjunctiva. PERRL, no anisocoria and EOM's grossly intact w/o pain. OROPHARYNX: Moist mucus membranes, grossly normal dentition. NECK: Trachea midline, no stridor. Supple, no nuchal rigidity, no adenopathy, non-tender. No signs of meningismus. FROM of the neck with good chin to chest and neck extension. LUNGS: Clear to auscultation. Normal chest wall mechanics. HEART: NSR, no MRG. ABDOMEN: Abdomen soft, non-tender, no masses, no rebound or guarding. BACK: No CVA TTP. SKIN: No rashes and no bruising. UPPER EXTREMITIES: Upper extremities are grossly normal. LOWER EXTREMITIES: Grossly normal, no edema. Patient denies any leg swelling or calf pain. NEURO EXAM: A&O x3, cranial nerves II-XII grossly intact, normal speech, moves all 4 extremities. Past Med/Surg History Problem List Nausea & vomiting (Acute) Dysphagia (Acute) History of ischemic cerebrovascular accident (CVA) with residual deficit Obesity (BMI 30-39.9) Right renal artery stenosis History of ischemic stroke Interstitial cystitis (chronic) without hematuria Anxiety Metabolic syndrome Pre-diabetes Dietary counseling and surveillance Graves disease (Chronic) Diverticulitis (Chronic) Finger laceration (Chronic) Hand laceration (Chronic) Allergic reaction (Chronic) Bronchitis (Chronic) Colitis (Chronic) Headache, acute (Chronic) Left arm weakness (Chronic) Vitamin D deficiency (Chronic) on vitamin-D 17120 IU weekly. screening for celiac disease negative. : Asked patient to increase vitamin-[place] [address] IU monthly Sleep apnea (Chronic) Pain of left lower leg (Chronic) Hypothyroidism (Chronic) Hyperlipidemia (Chronic) Gait disorder (Chronic) Fibromuscular dysplasia (Chronic) Fatigue (Chronic) Dysuria (Chronic) Depression (Chronic) COPD, moderate (Chronic) Knee pain, right (Chronic) Arthritis of right knee (Chronic) Encounter for pre-operative examination (Chronic) Osteoarthritis of right knee (Chronic) Meralgia paraesthetica (Chronic) Lumbar radiculopathy (Chronic) H/O: stroke with residual effects (Chronic) Fibromuscular dysplasia of both carotid arteries (Chronic) Positional vertigo Eustachian tube dysfunction Pulmonary emphysema Abnormal diffusion capacity determined by pulmonary function test Claudication of both lower extremities Tobacco abuse Pulmonary emphysema Pulmonary emphysema Dyspnea Obesity Personal history of nicotine dependence Encounter for pre-operative examination Neurogenic claudication due to lumbar spinal stenosis DVT prophylaxis History of stroke COVID-19 (Acute) COVID-19 (Acute) Personal history of COVID-19 GRADY (obstructive sleep apnea) Ex-smoker Allergic rhinitis with postnasal drip Pulmonary nodule Greater trochanteric bursitis of left hip History of Graves' disease Postablative hypothyroidism Cough Fever COPD (chronic obstructive pulmonary disease) (Chronic) Esophageal reflux (Chronic) Chronic pain syndrome (Chronic) Fibromuscular dysplasia of carotid artery Under surveillance by neurology GRADY and COPD overlap syndrome CPAP DEVICE BROKE>NO DEVICE Status post lumbar spine surgery for decompression of spinal cord Restless legs syndrome Greater trochanteric pain syndrome of left lower extremity Postablative hypothyroidism Hx of bursectomy Medical History Daytime sleepiness Allergic rhinitis Aggravated at this time History of COVID-27 JANUARY 2021 (NO CURRENT PROBLEMS) Depression Ulcerative colitis Stable Stroke Frontoparietal infarct/right MCA territory (2014)- on Plavix > residual left sided weakness Follows with Dr. Lito porras + goiter s/p thyroidectomy Surgical History History of hip surgery LEFT HIP BURSECTOMY Family history of reaction to anesthesia MOTHER>NAUSEA History of esophagogastroduodenoscopy (EGD) History of colonoscopy History of tooth extraction Hx of LASIK H/O total knee replacement Right TKA (11/21/19) Hx of cardiac cath 2014 ([facility]) > no stents Hx of thyroidectomy Hx of left inguinal hernia repair Hx of repair of right rotator cuff H/O: hysterectomy H/O knee surgery Right knee arthroscopy S/P colon resection (for diverticulitis) S/P cholecystectomy Family History Unknown Diabetes FH: thromboembolic disease Cancer Grandmother No problems noted. 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 Surgery Required: No Beliefs That Will Affect Care: None marital status: Current Living Situation: Spouse current occupational status: disabled Feels Safe at Home: Yes Childhood Exposure to Second-Hand Smoke: Yes Diet: regular Dental Care, Regularly: Yes Physical Activity Frequency: 3-4 Times per Week Seatbelt Use: always Sunscreen Use: Yes Do you think of yourself as: straight/heterosexual Assistive Devices: Denture - Upper Allergies Allergies Allergy/AdvReac Type Severity Reaction Status Date / Time levofloxacin Allergy Severe Anaphylaxis Verified 12/01/24 13:36 morphine Allergy Severe Anaphylaxis Verified 12/01/24 13:36 Penicillins Allergy Intermediate Ampicillin, Verified 12/01/24 13:36 Amoxicillin- Hives cephalexin Allergy Mild Rash Verified 12/01/24 13:36 metformin Allergy Mild upset Verified 12/01/24 13:36 stomach milk Allergy Mild Rash Verified 12/01/24 13:36 semaglutide [From Wegovy] AdvReac Severe Vomiting Verified 12/01/24 13:36 tramadol AdvReac Severe Told to Verified 12/01/24 13:36 avoid 2/2 lowering of seizure threshold (hx CVA) fentanyl AdvReac Intermediate "Sensitive" Verified 12/01/24 13:36 oxycodone [From Percocet] AdvReac Intermediate Insomnia Verified 12/01/24 13:36 Sulfa (Sulfonamide AdvReac Intermediate GI symptoms Verified 12/01/24 13:36 Antibiotics) atorvastatin AdvReac Mild Myalgias Verified 12/01/24 13:36 ketorolac [From Toradol] AdvReac Mild Told to Verified 12/01/24 13:36 avoid 2/2 lowering of seizure threshold (hx CVA) rosuvastatin [From Crestor] AdvReac Mild Myalgias Verified 12/01/24 13:36 Home Meds Home Medications Medication Instructions Recorded Confirmed esomeprazole magnesium 40 mg 40 mg PO BID #30 caps 08/29/19 12/18/24 capsule,delayed release mirabegron 50 mg tablet,extended 50 mg PO DAILY 01/25/24 12/18/24 release 24 hr (Myrbetriq) escitalopram oxalate 20 mg tablet 20 mg PO HS 12/18/24 12/18/24 Previous Rx's Medication Instructions Recorded Oxygen Home #1 ea 10/23/22 pen needle, diabetic 32 gauge x #50 ea 10/30/22" (BD Ultra-Fine Elizabeth Pen Needle) albuterol sulfate 90 mcg/actuation 2 puff inhalation Q6H PRN 12/27/23 aerosol inhaler shortness of breath or wheezing 90 days #54 grams mometasone-formoterol HFA 200 2 puff inhalation BID #39 grams 01/27/24 mcg-5 mcg/actuation aerosol inhaler (Dulera) umeclidinium 62.5 mcg/actuation 1 inh inhalation Q24H #3 Inhalers 01/27/24 blister powder for inhalation (Incruse Ellipta) thyroid (pork) 120 mg tablet 120 mg PO QAM #90 tabs 07/03/24 cyclobenzaprine 5 mg tablet 5 mg PO BID PRN muscle spasm #180 07/13/24 tabs clopidogrel 75 mg tablet 75 mg PO QAM #90 tabs 08/15/24 modafinil 100 mg tablet 200 mg (2 x 100 mg) PO DAILY #180 10/03/24 tabs ropinirole 0.5 mg tablet 1 mg (2 x 0.5 mg) PO HS 90 days 10/18/24 #180 tabs Results & Data (ED) Vital Signs Vital Signs - 24 hr 12/18/24 13:32 12/18/24 14:38 12/18/24 16:00 Temperature 36.6 C Temperature Source Temporal Artery Scan Pulse Rate 89 Pulse Rate [Apical] 76 93 H Pulse Strength [Apical] Normal Respiratory Rate 18 20 18 Respiratory Effort / Characteristics Non-Labored Spontaneous Non-Labored Non-Labored Spontaneous Respiratory Depth Normal Normal Normal Respiratory Pattern Regular Blood Pressure 142/85 H Blood Pressure [Right Arm] 148/112 H 145/93 H Blood Pressure Mean 104 Blood Pressure Mean [Right Arm] 124 110 Pulse Oximetry 95 96 96 Oxygen Delivery Method Room Air Room Air Room Air Sepsis Recent Fever Within 48 Hours No Sepsis New/Unexplained Change in Mental Status N/A Sepsis Action Taken by Nursing No Action Required Home Medications Current Medication List: was personally reviewed by me Laboratory Data Attestation: I reviewed the patient's lab results. 12/18/24 13:46 12/18/24 13:46 Lab Results 12/18/24 12/18/24 Range/Units 13:46 15:55 WBC 6.97 (4.8-10.8) K/ul RBC 4.38 (4.20-5.40) M/uL Hgb 12.4 (12.0-16.0) g/dl Hct 38.8 (37.0-47.0) % MCV 88.6 (80.0-100.0) fL MCH 28.3 (25.0-34.0) pg MCHC 32.0 (32.0-36.0) g/dL RDW Std Deviation 49.6 H (36.4-46.3) fL RDW Coeff of Ivan 15.2 H (11.5-14.5) % Plt Count 355 (130-400) K/uL MPV 9.1 L (9.4-12.4) fL Immature Gran % (Auto) 0.3 % Neut % (Auto) 73.6 % Lymph % (Auto) 14.6 % [place] % (Auto) 7.3 % Eos % (Auto) 2.9 % Baso % (Auto) 1.3 % Neut # (Auto) 5.13 (1.40-6.50) K/uL Lymph # (Auto) 1.02 L (1.20-3.40) K/uL [place] # (Auto) 0.51 (0.11-0.59) K/uL Eos # (Auto) 0.20 (0.00-0.50) K/uL Baso # (Auto) 0.09 (0.00-0.20) K/uL Immature Gran # (Auto) 0.02 (0.01-0.20) K/uL Sodium 137 (136-145) mmol/L Potassium 4.3 (3.5-5.1) mmol/L Chloride 102 (98-107) mmol/L Carbon Dioxide 29 (21-32) mmol/L Anion Gap 6 (3-11) BUN 16 (6-23) mg/dl Creatinine 1.03 (0.6-1.2) mg/dl Est Cr Clr Drug Dosing 61.4 ml/min eGFR 61.48 BUN/Creatinine Ratio 15.5 (10-20) Glucose 104 H (70-99(Fasting)) mg/dl POC Glucose 118 H (70-99) mg/dl Calcium 9.2 (8.6-10.3) mg/dl Total Bilirubin 0.5 (0.2-1.0) mg/dl AST 14 (13-39) U/L ALT 6 L (7-52) U/L Alkaline Phosphatase 112 H (34-104) U/L Total Protein 7.9 (6.0-8.3) gm/dl Albumin 4.3 (3.4-5.0) gm/dl Globulin 3.6 (2.5-4.0) gm/dl Albumin/Globulin Ratio 1.2 (0.9-2) Lipase 15 (11-82) U/L Administered Medications Discontinued Medications Glucagon (Glucagen) 1 mls @ 1 mls/min IV ONE ONE Stop: 12/18/24 14:45 Last Admin: 12/18/24 15:12 Dose: 1 mls/min Documented By: YARELY Sodium Chloride (Nss) 500 mls @ 999 mls/hr IV .Q31M ONE Stop: 12/18/24 15:14 Last Infusion: 12/18/24 15:54 Dose: Infused Documented By: Admin: 12/18/24 15:15 Dose: 999 mls/hr Documented By: YARELY Glucagon (Glucagen) 1 mls @ 1 mls/min IV ONE ONE Stop: 12/18/24 15:26 Last Admin: 12/18/24 15:36 Dose: 1 mls/min Documented By: YARELY Imaging Data Radiologist's Impression: Chest X-Ray 12/18/24 14:00 XR chest 1V not portable CLINICAL HISTORY: Vomiting. COMPARISON STUDY: Chest CT December 22, 2023. FINDINGS: Lung volumes are normal. There is no consolidation to suggest pneumonia. A few nodular densities projecting over the upper lungs measure up to 7 mm. There is no pneumothorax or pleural effusion. Cardiac size is normal. Mediastinal contours are normal. There is no evidence for pulmonary edema. Underlying emphysema is better depicted on prior CT. IMPRESSION: 1. No acute cardiopulmonary findings. 2. A few nodular densities which project over the upper lungs. These are likely artifactual however small pulmonary nodules or minimal airspace opacity cannot be excluded. Nonemergent chest CT is recommended for further evaluation. ACT 112: Negative or not required by law. Electronically signed by: Nadeem Howe M.D. 12/18/2024 2:14 PM Discharge Plan Visit Data Chief Complaint: Food Bolus Stated Complaint: UNABLE TO SWALLOW FOOD/PILLS, PAIN IN CHEST ED Provider: Shakeel Nash Discharge Problem: Dysphagia, Nausea & vomiting Forms Stand Alone Forms: [facility] Prescriptions Prescriptions: No Action (DME) Oxygen Home Liters Per Minute See Rx Instructions .Route Qty: 1 3RF Rx Instructions: As directed. 2LPM overnight albuterol sulfate 90 mcg/actuation HFA aerosol inhaler 2 puff inhalation Q6H PRN (Reason: shortness of breath or wheezing) 90 Days Qty: 54 3RF thyroid (pork) 120 mg tablet 120 mg PO QAM Qty: 90 0RF clopidogrel 75 mg tablet 75 mg PO QAM Qty: 90 3RF ropinirole 0.5 mg tablet 1 mg PO HS 90 Days Qty: 180 1RF (DME) pen needle, diabetic [BD Ultra-Fine Elizabeth Pen Needle] 32 gauge x 5/32" needle See Rx Instructions miscellaneous .MEDSUPPLY Qty: 50 0RF Rx Instructions: As directed esomeprazole magnesium 40 mg capsule,delayed release(DR/EC) 40 mg PO BID Qty: 30 cyclobenzaprine 5 mg tablet 5 mg PO BID PRN (Reason: muscle spasm) Qty: 180 3RF Myrbetriq 50 mg tablet extended release 24 hr 50 mg PO DAILY Dulera 200-5 mcg/actuation HFA aerosol inhaler 2 puff inhalation BID Qty: 39 4RF Incruse Ellipta 62.5 mcg/actuation blister with device 1 inh inhalation Q24H Qty: 3 4RF modafinil 100 mg tablet 200 mg PO DAILY Qty: 180 3RF Patient Comments: QAM escitalopram oxalate 20 mg tablet 20 mg PO HS Referrals Referrals: Dipti Huffman DO [Primary Care Provider] - Discharge Problem: Dysphagia Qualifiers: Dysphagia type: esophageal phase Qualified Code(s): R13.19 - Other dysphagia Nausea & vomiting Qualifiers: Vomiting type: unspecified Qualified Code(s): R11.2 - Nausea with vomiting, unspecified
[2024-12-18] MEDS: GLUCAGON 1 ML IV ONE ×2 (15:12→15:36)
[2024-12-18] MEDS: SODIUM CHLORIDE 0.9% 500 ML IV ONE (15:15)
--- NOTE | 2024-12-18 16:04 | Gastrointestinal Consultation ---
Date of Consultation December 18, 2024 Assessment & Plan (1) Dysphagia: Patient is a 64-year-old white female with history of ischemic CVA obesity, right renal artery stenosis, prediabetes with metabolic syndrome, Graves' disease, hypothyroidism, hyperlipidemia, depression, disorder, moderate COPD, Jacques's esophagus, COPD, obstructive sleep apnea, and history of diverticulitis who presents with 3-day history of progressive dysphagia. She says, solid food mainly gets stuck and she has to vomit it up. This started suddenly on Wednesday and she was having a difficult time eating. On Wednesday it improved. On Wednesday her symptoms returned. She states she is able to pass her own secretions as well as drink liquid. In fact, she drank liquid today and had eggs this morning. Unfortunately, the eggs came up and she had nausea and vomiting. She does have a history of Jacques's esophagus and has been dilated in the past for a esophageal Schatzki's ring. Her last EGD with dilation was a few years ago by her report. I suspect this is a recurrence of Schatzki's ring. I will plan on doing an EGD with dilation tomorrow. I explained to her that as she is tolerating liquids, low risk for a food bolus. My other concern is given her comorbidities (COPD CAD history of CVA) and the fact she ate solid food today, she would need to get intubated prior to getting a EGD today. She does not want that to happen today she feels okay IV fluids n.p.o. PPI twice daily plan for an EGD tomorrow.. History of Present Illness Reason for Consultation: Nausea and unable to take p.o. intake for solid food. Liquids go down okay including her saliva Requesting Physician: MOS[facility], Dr. Shakeel Nash History of Present Illness Patient is a 64-year-old white female with history of ischemic CVA obesity, right renal artery stenosis, prediabetes with metabolic syndrome, Graves' disease, hypothyroidism, hyperlipidemia, depression, disorder, moderate COPD, Jacques's esophagus, COPD, obstructive sleep apnea, and history of diverticulitis who presents with 3-day history of progressive dysphagia. She says, solid food mainly gets stuck and she has to vomit it up. This started suddenly on Wednesday and she was having a difficult time eating. On Wednesday it improved. On Wednesday her symptoms returned. She states she is able to pass her own secretions as well as drink liquid. In fact, she drank liquid today and had eggs this morning. Unfortunately, the eggs came up and she had nausea and vomiting. She does have a history of Jacques's esophagus and has been dilated in the past for a esophageal Schatzki's ring. Her last EGD with dilation was a few years ago by her report. 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 She has been on mesalamine and Uceris with some benefit. Currently she is tolerating her liquids but is unable to take solid food. She is thirsty. Allergies Allergy/AdvReac Type Severity Reaction Status Date / Time levofloxacin Allergy Severe Anaphylaxis Verified 12/01/24 13:36 morphine Allergy Severe Anaphylaxis Verified 12/01/24 13:36 Penicillins Allergy Intermediate Ampicillin, Verified 12/01/24 13:36 Amoxicillin- Hives cephalexin Allergy Mild Rash Verified 12/01/24 13:36 metformin Allergy Mild upset Verified 12/01/24 13:36 stomach milk Allergy Mild Rash Verified 12/01/24 13:36 semaglutide [From Wegovy] AdvReac Severe Vomiting Verified 12/01/24 13:36 tramadol AdvReac Severe Told to Verified 12/01/24 13:36 avoid 2/2 lowering of seizure threshold (hx CVA) fentanyl AdvReac Intermediate "Sensitive" Verified 12/01/24 13:36 oxycodone [From Percocet] AdvReac Intermediate Insomnia Verified 12/01/24 13:36 Sulfa (Sulfonamide AdvReac Intermediate GI symptoms Verified 12/01/24 13:36 Antibiotics) atorvastatin AdvReac Mild Myalgias Verified 12/01/24 13:36 ketorolac [From Toradol] AdvReac Mild Told to Verified 12/01/24 13:36 avoid 2/2 lowering of seizure threshold (hx CVA) rosuvastatin [From Crestor] AdvReac Mild Myalgias Verified 12/01/24 13:36 Home Medications Medication Instructions Recorded Confirmed Type esomeprazole magnesium 40 mg 40 mg PO BID #30 caps 08/29/19 12/01/24 History capsule,delayed release Oxygen Home #1 ea 10/23/22 12/01/24 Rx pen needle, diabetic 32 gauge x #50 ea 10/30/22 12/01/24 Rx 5/32" (BD Ultra-Fine Elizabeth Pen Needle) lorazepam 0.5 mg tablet 0.5 mg PO DAILY PRN anxiety #14 08/04/23 12/01/24 Rx tabs albuterol sulfate 90 mcg/actuation 2 puff inhalation Q6H PRN 12/27/23 12/01/24 Rx aerosol inhaler shortness of breath or wheezing 90 days #54 grams mirabegron 50 mg tablet,extended 50 mg PO DAILY 01/25/24 12/01/24 History release 24 hr (Myrbetriq) mometasone-formoterol HFA 200 2 puff inhalation BID #39 grams 01/27/24 12/01/24 Rx mcg-5 mcg/actuation aerosol inhaler (Dulera) umeclidinium 62.5 mcg/actuation 1 inh inhalation Q24H #3 Inhalers 01/27/24 12/01/24 Rx blister powder for inhalation (Incruse Ellipta) escitalopram oxalate 20 mg tablet See Rx Instructions .Route 02/07/24 12/01/24 Rx .COMPLEX #90 tabs thyroid (pork) 120 mg tablet 120 mg PO QAM #90 tabs 07/03/24 12/01/24 Rx cyclobenzaprine 5 mg tablet 5 mg PO BID PRN muscle spasm #180 07/13/24 12/01/24 Rx tabs clopidogrel 75 mg tablet 75 mg PO QAM #90 tabs 08/15/24 12/01/24 Rx modafinil 100 mg tablet 200 mg (2 x 100 mg) PO DAILY #180 10/03/24 12/01/24 Rx tabs ropinirole 0.5 mg tablet 1 mg (2 x 0.5 mg) PO HS 90 days 10/18/24 12/01/24 Rx #180 tabs Patient History Medical History Daytime sleepiness Allergic rhinitis Aggravated at this time History of COVID-27 JANUARY 2021 (NO CURRENT PROBLEMS) Depression Ulcerative colitis Stable Stroke Frontoparietal infarct/right MCA territory (2014)- on Plavix > residual left sided weakness Follows with Dr. Morse Graves disease + goiter s/p thyroidectomy Surgical History History of hip surgery LEFT HIP BURSECTOMY Family history of reaction to anesthesia MOTHER>NAUSEA History of esophagogastroduodenoscopy (EGD) History of colonoscopy History of tooth extraction Hx of LASIK H/O total knee replacement Right TKA (11/21/19) Hx of cardiac cath 2015 ([facility]) > no stents Hx of thyroidectomy Hx of left inguinal hernia repair Hx of repair of right rotator cuff H/O: hysterectomy H/O knee surgery Right knee arthroscopy S/P colon resection (for diverticulitis) S/P cholecystectomy Family History Unknown Diabetes FH: thromboembolic disease Cancer Grandmother No problems noted. Mother Irritable bowel syndrome Grandmother (Paternal) Family history of diabetes mellitus Family hx of colon cancer Social History Smoking Status: Never smoker Tobacco Type: Cigarettes Age Started Using Tobacco: 18; Age Quit Using Tobacco: 54; packs per day: 1; Second Hand Exposure: No; Do You Dip or Chew Tobacco: No; Hx Alcohol Use: No Hx Substance Use: No Preferred Language: Irish Communication Ability: Effective Visual Impairment: Diminished Hearing Ability: Normal Property Officer Required: No Beliefs That Will Affect Care: None marital status: Current Living Situation: Spouse current occupational status: disabled Feels Safe at Home: Yes Childhood Exposure to Second-Hand Smoke: Yes Diet: regular Dental Care, Regularly: Yes Physical Activity Frequency: 3-4 Times per Week Seatbelt Use: always Sunscreen Use: Yes Do you think of yourself as: straight/heterosexual Assistive Devices: Denture - Upper Review of Systems Review of Systems: All systems reviewed & are unremarkable except as noted in HPI & below Physical Exam Physical Exam: Physical Exam: General: Well nourished and well developed in NAD HEENT: EOMI, PERRL Neck: trachea midline, no lad Lungs: CTA b, bilateral bs present Heart: RRR, no M and no edema Abd: soft, NT/ND, NABS Musculoskeletal: no c/c/e, normal strength B Neuro: CN2-12 intact, normal gait, normal strength Psych: normal affect and mood, euthymic. Results & Data Vital Signs (Past 12 Hours) Vital Signs Temp Pulse Pulse Resp BP BP Pulse Ox 12/18/24 14:38 76 20 148/112 H 96 12/18/24 13:32 36.6 C 89 18 142/85 H 95 O2 Del Method 12/18/24 14:38 Room Air 12/18/24 13:32 Room Air PG Care Time/CCT Total # of Minutes Spent Total Time Spent with Patient: Total time spent is greater than 50% in coordination of care (as documented) at patient's floor/unit and/or counseling patient: Coding Level of Care Code 40847 IN/OBS CONSULT LVL 4,60M Diagnoses Dysphagia R13.10
[2024-12-18] MEDS: ONDANSETRON INJ 2 MG/ML 2 ML VIAL IV STA (16:30)
[2024-12-18] MEDS ORDERED: ALBUTEROL HFA 8 GM INHALER INH PRN (17:57)
[2024-12-18] MEDS ORDERED: ONDANSETRON INJ 2 MG/ML 2 ML VIAL IV PRN (17:57)
[2024-12-18] MEDS ORDERED: ACETAMINOPHEN 1,000 MG/100 ML VIAL IV PRN (17:57)
[2024-12-18] MEDS: LACTATED RINGER'S 1,000 ML IV SCH (20:01)
[2024-12-18] MEDS: rOPINIRole HCL 1 MG TABLET PO SCH (20:02)
[2024-12-18] MEDS: PANTOprazole 40 MG TAB PO SCH (20:02)
[2024-12-18] MEDS: ESCITALOPRAM OXALATE 20 MG TAB PO SCH (20:02)
--- NOTE | 2024-12-18 20:38 | History & Physical Report ---
Date of Service December 18, 2024 Assessment & Plan (1) Dysphagia: (2) Graves disease: (3) Depression: (4) COPD, moderate: (5) History of ischemic cerebrovascular accident (CVA) with residual deficit: Plan Dysphagia/odynophagiaconsistent with esophageal stricture and some food sti cking. NPO. IV fluids, antiemetics. EGD tomorrow. Cerebrovascular disease/prior CVAPlavix on hold for nowanticipate being able to resume after scope COPDcontinue umeclidinium and Breo hypothyroidismcontinue home meds outpatient follow-up depressioncontinue Lexapro DVT prophylaxisgiven EGD tomorrow, ambulation for now. Initiate pharmacologic DVT prophylaxis if hospital stay is prolonged dispositionobserve medical [facility] hospitalist service, GI consult. Anticipate being able to go home after scope as long as procedure is successful and she is able to eat and drink well afterwards. Admission and Anticipated Discharge Date Admission Date: December 18, 2024 History of Present Illness Chief Complaint: Dysphagia/food sticking Primary Care Provider: Dipti Huffman DO patient is a very pleasant 64-year-old female who presents after about 3 days of progressive dysphagia and food sticking. She notes prior stricture, over the last few days with starting to feel food sticking more, has had vomiting whenever it feels like food has gotten stuck, has been able to drink some water but not a lot. Unfortunately her primary associate financial representative is away until at least next week so she came to the ER because she felt like she would not be able to sustain as an outpatient until then. GI is already seen her and is planning on EGD tomorrow. She has no other symptoms. Allergies Allergy/AdvReac Type Severity Reaction Status Date / Time levofloxacin Allergy Severe Anaphylaxis Verified 12/01/24 13:36 morphine Allergy Severe Anaphylaxis Verified 12/01/24 13:36 Penicillins Allergy Intermediate Ampicillin, Verified 12/01/24 13:36 Amoxicillin- Hives cephalexin Allergy Mild Rash Verified 12/01/24 13:36 metformin Allergy Mild upset Verified 12/01/24 13:36 stomach milk Allergy Mild Rash Verified 12/01/24 13:36 semaglutide [From Wegovy] AdvReac Severe Vomiting Verified 12/01/24 13:36 tramadol AdvReac Severe Told to Verified 12/01/24 13:36 avoid 2/2 lowering of seizure threshold (hx CVA) fentanyl AdvReac Intermediate "Sensitive" Verified 12/01/24 13:36 oxycodone [From Percocet] AdvReac Intermediate Insomnia Verified 12/01/24 13:36 Sulfa (Sulfonamide AdvReac Intermediate GI symptoms Verified 12/01/24 13:36 Antibiotics) atorvastatin AdvReac Mild Myalgias Verified 12/01/24 13:36 ketorolac [From Toradol] AdvReac Mild Told to Verified 12/01/24 13:36 avoid 2/2 lowering of seizure threshold (hx CVA) rosuvastatin [From Crestor] AdvReac Mild Myalgias Verified 12/01/24 13:36 Home Medications Medication Instructions Recorded Confirmed Type esomeprazole magnesium 40 mg 40 mg PO BID #30 caps 08/29/19 12/18/24 History capsule,delayed release Oxygen Home #1 ea 10/23/22 12/18/24 Rx pen needle, diabetic 32 gauge x #50 ea 10/30/22 12/18/24 Rx 5/32" (BD Ultra-Fine Elizabeth Pen Needle) albuterol sulfate 90 mcg/actuation 2 puff inhalation Q6H PRN 12/27/23 12/18/24 Rx aerosol inhaler shortness of breath or wheezing 90 days #54 grams mirabegron 50 mg tablet,extended 50 mg PO DAILY 01/25/24 12/18/24 History release 24 hr (Myrbetriq) mometasone-formoterol HFA 200 2 puff inhalation BID #39 grams 01/27/24 12/18/24 Rx mcg-5 mcg/actuation aerosol inhaler (Dulera) umeclidinium 62.5 mcg/actuation 1 inh inhalation Q24H #3 Inhalers 01/27/24 12/18/24 Rx blister powder for inhalation (Incruse Ellipta) thyroid (pork) 120 mg tablet 120 mg PO QAM #90 tabs 07/03/24 12/18/24 Rx cyclobenzaprine 5 mg tablet 5 mg PO BID PRN muscle spasm #180 07/13/24 12/18/24 Rx tabs clopidogrel 75 mg tablet 75 mg PO QAM #90 tabs 08/15/24 12/18/24 Rx modafinil 100 mg tablet 200 mg (2 x 100 mg) PO DAILY #180 10/03/24 12/18/24 Rx tabs ropinirole 0.5 mg tablet 1 mg (2 x 0.5 mg) PO HS 90 days 10/18/24 12/18/24 Rx #180 tabs escitalopram oxalate 20 mg tablet 20 mg PO HS 12/18/24 12/18/24 History Past Med/Surg History Problem List Nausea & vomiting (Acute) Dysphagia (Acute) History of ischemic cerebrovascular accident (CVA) with residual deficit Obesity (BMI 30-39.9) Right renal artery stenosis History of ischemic stroke Interstitial cystitis (chronic) without hematuria Anxiety Metabolic syndrome Pre-diabetes Dietary counseling and surveillance Graves disease (Chronic) Diverticulitis (Chronic) Finger laceration (Chronic) Hand laceration (Chronic) Allergic reaction (Chronic) Bronchitis (Chronic) Colitis (Chronic) Headache, acute (Chronic) Left arm weakness (Chronic) Vitamin D deficiency (Chronic) on vitamin-D 92429 IU weekly. screening for celiac disease negative. : Asked patient to increase vitamin-D [place] [address] IU monthly Sleep apnea (Chronic) Pain of left lower leg (Chronic) Hypothyroidism (Chronic) Hyperlipidemia (Chronic) Gait disorder (Chronic) Fibromuscular dysplasia (Chronic) Fatigue (Chronic) Dysuria (Chronic) Depression (Chronic) COPD, moderate (Chronic) Knee pain, right (Chronic) Arthritis of right knee (Chronic) Encounter for pre-operative examination (Chronic) Osteoarthritis of right knee (Chronic) Meralgia paraesthetica (Chronic) Lumbar radiculopathy (Chronic) H/O: stroke with residual effects (Chronic) Fibromuscular dysplasia of both carotid arteries (Chronic) Positional vertigo Eustachian tube dysfunction Pulmonary emphysema Abnormal diffusion capacity determined by pulmonary function test Claudication of both lower extremities Tobacco abuse Pulmonary emphysema Pulmonary emphysema Dyspnea Obesity Personal history of nicotine dependence Encounter for pre-operative examination Neurogenic claudication due to lumbar spinal stenosis DVT prophylaxis History of stroke COVID-19 (Acute) COVID-19 (Acute) Personal history of COVID-19 GRADY (obstructive sleep apnea) Ex-smoker Allergic rhinitis with postnasal drip Pulmonary nodule Greater trochanteric bursitis of left hip History of Graves' disease Postablative hypothyroidism Cough Fever COPD (chronic obstructive pulmonary disease) (Chronic) Esophageal reflux (Chronic) Chronic pain syndrome (Chronic) Fibromuscular dysplasia of carotid artery Under surveillance by neurology GRADY and COPD overlap syndrome CPAP DEVICE BROKE>NO DEVICE Status post lumbar spine surgery for decompression of spinal cord Restless legs syndrome Greater trochanteric pain syndrome of left lower extremity Postablative hypothyroidism Hx of bursectomy Medical History Daytime sleepiness Allergic rhinitis Aggravated at this time History of COVID-27 JANUARY 2021 (NO CURRENT PROBLEMS) Depression Ulcerative colitis Stable Stroke Frontoparietal infarct/right MCA territory (2014)- on Plavix > residual left sided weakness Follows with Dr. Morse Graves disease + goiter s/p thyroidectomy Surgical History History of hip surgery LEFT HIP BURSECTOMY Family history of reaction to anesthesia MOTHER>NAUSEA History of esophagogastroduodenoscopy (EGD) History of colonoscopy History of tooth extraction Hx of LASIK H/O total knee replacement Right TKA (11/21/19) Hx of cardiac cath 2014 ([facility]) > no stents Hx of thyroidectomy Hx of left inguinal hernia repair Hx of repair of right rotator cuff H/O: hysterectomy H/O knee surgery Right knee arthroscopy S/P colon resection (for diverticulitis) S/P cholecystectomy Family History Unknown Diabetes FH: thromboembolic disease Cancer Grandmother No problems noted. 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: No Beliefs That Will Affect Care: None marital status: Current Living Situation: Spouse current occupational status: disabled Feels Safe at Home: Yes Safety Concerns: Feels Safe At This Time Childhood Exposure to Second-Hand Smoke: Yes Diet: regular Dental Care, Regularly: Yes Physical Activity Frequency: 3-4 Times per Week Seatbelt Use: always Sunscreen Use: Yes Do you think of yourself as: straight/heterosexual Assistive Devices: Denture - Upper Review of Systems Review of Systems: All systems reviewed & are unremarkable except as noted in HPI & below Results & Data Results & Data Vital Signs (Past 12 Hours) Vital Signs Temp Pulse Pulse Pulse Resp BP BP 12/18/24 19:53 98.1 F 66 16 134/82 12/18/24 18:06 97.5 F L 54 L 18 131/77 12/18/24 17:50 97.5 F L 54 L 16 131/77 12/18/24 16:00 93 H 18 145/93 H 12/18/24 14:38 76 20 148/112 H 12/18/24 13:32 97.9 F 89 18 142/85 H Pulse Ox O2 Del Method 12/18/24 19:53 96 Room Air 12/18/24 18:06 98 Room Air 12/18/24 17:50 98 Room Air 12/18/24 16:00 96 Room Air 12/18/24 14:38 96 Room Air 12/18/24 13:32 95 Room Air Code Status & VTE Plan VTE Prophylaxis Plan VTE Prophylaxis will be ordered: No Reason for no VTE drug order: Treatment not indicated PG Care Time/CCT Total # of Minutes Spent Total Time Spent with Patient: Total time spent is greater than 50% in coordination of care (as documented) at patient's floor/unit and/or counseling patient: Coding Level of Care Code 85279 INT INP/OBS CARE 3/75MIN Diagnoses Dysphagia R13.19 Dysphagia type: esophageal phase Graves disease E05.00 Depression F32.9 COPD, moderate J44.9 History of ischemic cerebrovascular accident (CVA) with residual deficit I69.30 (1) Dysphagia Dysphagia type: esophageal phase Qualified Code(s): R13.19 - Other dysphagia
[2024-12-18] MEDS: CYCLOBENZAPRINE HCL 5 MG TAB PO PRN (23:03)
--- NOTE | 2024-12-19 06:31 | Electrocardiogram Report ---
Test Reason : Blood Pressure : */* mmHG Vent. Rate : 82 BPM Atrial Rate : 82 BPM P-R Int : 116 ms QRS Dur : 76 ms QT Int : 374 ms P-R-T Axes : 41 31 91 degrees QTcB Int : 436 ms Poor data quality, interpretation may be adversely affected Normal sinus rhythm Abnormal ECG When compared with ECG of 31-Jan-2021 20:53, No significant change Confirmed by Shyam Caraballo ([id number]) on 12/19/2024 6:30:49 AM Referred By: Confirmed By: Shyam Caraballo
--- NOTE | 2024-12-19 08:27 | History & Physical Bridge Note ---
Date of Service December 19, 2024 History & Physical Bridge Note I have examined the patient, reviewed the History & Physical and in the interval since the performance of the History & Physical I have noted the following changes of clinical significance: no changes noted Briefly patient has history of Schatzki's ring and presented with progressive dysphagia. She can tolerate her secretions and liquids but was not able to take solid food. Plan for an EGD today with possible dilation and biopsy. Patient is n.p.o. and stable for EGD
--- NOTE | 2024-12-19 08:46 | Anesthesiology Consultation ---
Date of Service December 19, 2024 Assessment & Plan Chart Review Chart Review: Acceptable Risk for Surgery Consults Requested none History Surgery Operation Date: 12/19/24 16:45 Proposed Procedures p Esophagogastroduodenoscopy Alberto Dominguez MD Height/Weight Height: 5 ft 3 in Weight: 93.2 kg Allergies Allergy/AdvReac Type Severity Reaction Status Date / Time levofloxacin Allergy Severe Anaphylaxis Verified 12/01/24 13:36 morphine Allergy Severe Anaphylaxis Verified 12/01/24 13:36 Penicillins Allergy Intermediate Ampicillin, Verified 12/01/24 13:36 Amoxicillin- Hives cephalexin Allergy Mild Rash Verified 12/01/24 13:36 metformin Allergy Mild upset Verified 12/01/24 13:36 stomach milk Allergy Mild Rash Verified 12/01/24 13:36 semaglutide [From Wegovy] AdvReac Severe Vomiting Verified 12/01/24 13:36 tramadol AdvReac Severe Told to Verified 12/01/24 13:36 avoid 2/2 lowering of seizure threshold (hx CVA) fentanyl AdvReac Intermediate "Sensitive" Verified 12/01/24 13:36 oxycodone [From Percocet] AdvReac Intermediate Insomnia Verified 12/01/24 13:36 Sulfa (Sulfonamide AdvReac Intermediate GI symptoms Verified 12/01/24 13:36 Antibiotics) atorvastatin AdvReac Mild Myalgias Verified 12/01/24 13:36 ketorolac [From Toradol] AdvReac Mild Told to Verified 12/01/24 13:36 avoid 2/2 lowering of seizure threshold (hx CVA) rosuvastatin [From Crestor] AdvReac Mild Myalgias Verified 12/01/24 13:36 Medications Home Medications Medication Instructions Recorded Confirmed Last Taken esomeprazole magnesium 40 mg 40 mg PO BID #30 caps 08/29/19 12/18/24 12/17/24 capsule,delayed release Oxygen Home #1 ea 10/23/22 12/18/24 12/17/24 pen needle, diabetic 32 gauge x #50 ea 10/30/22 12/18/24 12/17/24 5/32" (BD Ultra-Fine Elizabeth Pen Needle) albuterol sulfate 90 mcg/actuation 2 puff inhalation Q6H PRN 12/27/23 12/18/24 12/17/24 aerosol inhaler shortness of breath or wheezing 90 days #54 grams mirabegron 50 mg tablet,extended 50 mg PO DAILY 01/25/24 12/18/24 12/17/24 release 24 hr (Myrbetriq) mometasone-formoterol HFA 200 2 puff inhalation BID #39 grams 01/27/24 12/18/24 12/17/24 mcg-5 mcg/actuation aerosol inhaler (Dulera) umeclidinium 62.5 mcg/actuation 1 inh inhalation Q24H #3 Inhalers 01/27/24 12/18/24 12/17/24 blister powder for inhalation (Incruse Ellipta) thyroid (pork) 120 mg tablet 120 mg PO QAM #90 tabs 07/03/24 12/18/24 12/17/24 cyclobenzaprine 5 mg tablet 5 mg PO BID PRN muscle spasm #180 07/13/24 12/18/24 12/17/24 tabs clopidogrel 75 mg tablet 75 mg PO QAM #90 tabs 08/15/24 12/18/24 12/17/24 modafinil 100 mg tablet 200 mg (2 x 100 mg) PO DAILY #180 10/03/24 12/18/24 12/17/24 tabs ropinirole 0.5 mg tablet 1 mg (2 x 0.5 mg) PO HS 90 days 10/18/24 12/18/24 12/17/24 #180 tabs escitalopram oxalate 20 mg tablet 20 mg PO HS 12/18/24 12/18/24 12/17/24 Active Medications Generic Name Dose Route Start Last Admin Trade Name Freq PRN Reason Stop Dose Admin Cyclobenzaprine HCl 5 mg 12/18/24 17:57 12/18/24 23:03 Cyclobenzaprine Hcl 5 Mg Tab PO 01/17/25 17:56 5 mg BID PRN Administration muscle spasm Escitalopram Oxalate 20 mg 12/18/24 21:00 12/18/24 20:02 Escitalopram Oxalate 20 Mg Tab PO 01/17/25 20:59 20 mg HS RAHEEL Administration Lactated Ringer's 1,000 mls @ 80 mls/hr 12/18/24 19:45 12/18/24 20:01 Lr IV 12/19/24 19:44 80 mls/hr .[id number] RAHEEL Administration Pantoprazole Sodium 40 mg 12/18/24 21:00 12/18/24 20:02 Pantoprazole 40 Mg Tab PO 01/17/25 20:59 40 mg BID RAHEEL Administration Ropinirole HCl 1 mg 12/18/24 21:00 12/18/24 20:02 Ropinirole Hcl 1 Mg Tablet PO 01/17/25 20:59 1 mg HS RAHEEL Administration NPO Date Last Intake of Fluids: 12/18/24 Time Last Intake of Fluids: 21:00 Date Last Intake of Solids: 12/16/24 Time Last Intake of Solids: 20:00 Past Medical History Medical History Daytime sleepiness Allergic rhinitis Aggravated at this time History of COVID-27 JANUARY 2021 (NO CURRENT PROBLEMS) Depression Ulcerative colitis Stable Stroke Frontoparietal infarct/right MCA territory (2014)- on Plavix > residual left sided weakness Follows with Dr. Morse Graves disease + goiter s/p thyroidectomy Past Family History Family History Unknown Diabetes FH: thromboembolic disease Cancer Grandmother No problems noted. Mother Irritable bowel syndrome Grandmother (Paternal) Family history of diabetes mellitus Family hx of colon cancer Past Surgical History Surgical History History of hip surgery LEFT HIP BURSECTOMY Family history of reaction to anesthesia MOTHER>NAUSEA History of esophagogastroduodenoscopy (EGD) History of colonoscopy History of tooth extraction Hx of LASIK H/O total knee replacement Right TKA (11/21/19) Hx of cardiac cath 2014 ([facility]) > no stents Hx of thyroidectomy Hx of left inguinal hernia repair Hx of repair of right rotator cuff H/O: hysterectomy H/O knee surgery Right knee arthroscopy S/P colon resection (for diverticulitis) S/P cholecystectomy Social History Smoking Status: Former smoker tobacco type: cigarettes Do You Dip or Chew Tobacco: No Smoking End Date: 2014 Hx Alcohol Use: No Hx Substance Use: No substance use type: does not use Physical Exam Vital Signs Last Vital Signs Temp 36.6 C 12/19/24 08:34 Pulse 68 12/19/24 08:34 Resp 16 12/19/24 08:34 BP 148/105 H 12/19/24 08:34 Pulse Ox 96 12/19/24 08:34 O2 Del Method Room Air 12/19/24 08:34 Testing Laboratory Results 12/18/24 13:46 12/18/24 13:46
--- NOTE | 2024-12-19 09:45 | GI REPORT ---
[facility] Patient: BEKAH MIRANDA : 1960 Sex at : Female Age: 64 Years Procedure: Upper GI endoscopy Date: 12/19/2024 Attending Physician: Jaylan Dominguez MD Referring MD: Referred Self Indications: - Dysphagia Medications: - Monitored Anesthesia Care Complications: - No immediate complications. Estimated Blood Loss: - Estimated blood loss: None. Procedure: - Prior to the procedure, a History and Physical was performed, and patient medications and allergies were reviewed. The patient's tolerance of previous anesthesia was also reviewed. The risks and benefits of the procedure and the sedation options and risks were discussed with the patient. All questions were answered, and informed consent was obtained. Prior Anticoagulants: The patient has taken Plavix (clopidogrel), last dose was 2 days prior to procedure. ASA Grade Assessment: III - A patient with severe systemic disease. After reviewing the risks and benefits, the patient was deemed in satisfactory condition to undergo the procedure. - The egd scope was introduced through the mouth and advanced to the third part of the duodenum. - The upper GI endoscopy was accomplished without difficulty. - The patient tolerated the procedure well. Findings: - A mild Schatzki ring was found in the distal esophagus. A TTS dilator was passed through the scope. Dilation with an 18-19-20 mm balloon (to a maximum balloon size of 20 mm) dilator was performed. The dilation site was examined following endoscope reinsertion and showed mild mucosal disruption. - Food was found in the lower third of the esophagus. Removal was accomplished with a Frank net. - Diffuse moderate inflammation characterized by erythema was found in the entire examined stomach. No biopsies as on plavix. - The examined duodenum was normal. Impression: - Mild Schatzki ring. Dilated with an 18-19-20 mm balloon (to a maximum balloon size of 20 mm). - Food in the lower third of the esophagus. Removal was successful. - Acute gastritis, characterized by erythema. - No biopsies as on plavix. - Normal examined duodenum. Recommendation: - Discharge patient to home (ambulatory). - Resume previous diet. - Continue present medications. - Await pathology results. - Return to primary care physician as previously scheduled. - Resume Plavix (clopidogrel) at prior dose tomorrow. - Patient has a contact number available for emergencies. The signs and symptoms of potential delayed complications were discussed with the patient. Return to normal activities tomorrow. Written discharge instructions were provided to the patient. - ppi once daily, f/up with gi in 6-8 weeks. chew food completely. Procedure Code(s): - 11565, Esophagogastroduodenoscopy, flexible, transoral; with removal of foreign body(s) - 29788, Esophagogastroduodenoscopy, flexible, transoral; with transendoscopic balloon dilation of esophagus (less than 30 mm diameter) Diagnosis Code(s): - R13.10, Dysphagia, unspecified - K22.2, Esophageal obstruction - T18.128A, Food in esophagus causing other injury, initial encounter - K29.00, Acute gastritis without bleeding CPT(R) - 2023 copyright [employer]. All Rights Reserved. The CPT codes, CCI edits and ICD codes generated are intended as suggestions and were generated based on input data. These codes are preliminary and upon youth associate review may be revised to meet current compliance and payer requirements. The provider is responsible for the final determination of appropriate codes, and modifiers. Jaylan Dominguez MD This document has been electronically signed. Note Initiated:12/19/2024 Note Completed:12/19/2024 9:44 AM \\[email or web address]\Results\[email or web address]\[id number]
--- NOTE | 2024-12-19 09:57 | Anesthesiology Progress Note ---
Date of Service December 19, 2024 Anesthesia Post Procedure Vital Signs Vital Signs: Temp Pulse Pulse Pulse Resp BP BP 12/19/24 09:50 62 18 119/81 12/19/24 09:35 71 16 105/57 L 12/19/24 08:34 36.6 C 68 16 148/105 H 12/19/24 07:14 36.3 C L 61 17 126/81 12/18/24 21:26 12/18/24 19:53 36.7 C 66 16 134/82 12/18/24 18:06 36.4 C L 54 L 18 131/77 12/18/24 17:50 36.4 C L 54 L 16 131/77 12/18/24 16:00 93 H 18 145/93 H 12/18/24 14:38 76 20 148/112 H 12/18/24 13:32 36.6 C 89 18 142/85 H Pulse Ox O2 Del Method 12/19/24 09:50 96 Room Air 12/19/24 09:35 97 Room Air 12/19/24 08:34 96 Room Air 12/19/24 07:14 94 Room Air 12/18/24 21:26 Room Air 12/18/24 19:53 96 Room Air 12/18/24 18:06 98 Room Air 12/18/24 17:50 98 Room Air 12/18/24 16:00 96 Room Air 12/18/24 14:38 96 Room Air 12/18/24 13:32 95 Room Air Transfer of Care Handoff Completed per policy Notes Mental Status: alert / awake / arousable and participated in evaluation Patient Amnestic to Procedure: Yes Nausea / Vomiting: adequately controlled Pain: adequately controlled Airway Patency, RR, SpO2: stable & adequate BP & HR: stable & adequate Hydration State: stable & adequate Anesthetic Complications: no major complications apparent
[2024-12-19 10:10] VITALS: RESP 16
[2024-12-19 10:19] VITALS: BP 149/83; PULSE 67; TEMP 97.7; O2SAT 93
[2024-12-19] MEDS: PROPOFOL IV EMULSION 10 MG/ML 20 ML VIAL IV ONE (10:39)
[2024-12-19] MEDS: LIDOCAINE 2% 2 ML VIAL/AMP(20MG/ML) INFIL ONE (10:39)
[2024-12-19] MEDS: FLUTICASONE/VILANTEROL 200/25MCG 14 PUFFS/INHALER INH SCH (10:47)
[2024-12-19] MEDS: UMECLIDINIUM BROMIDE 62.5MCG/BLISTER 7 PUFFS/INHALER INH SCH (10:47)
[2024-12-19] MEDS: modafiniL 100 MG TAB PO SCH (10:50)
[2024-12-19] MEDS: ARMOUR THYROID 30 MG TAB PO SCH (10:51)
[2024-12-19] MEDS: VIBEGRON 75 MG TAB PO SCH (10:51)
--- NOTE | 2024-12-19 14:14 | Discharge Summary ---
Discharge Summary Date of Service December 19, 2024 Principal Dx & Hospital Course #1 = Principal Diagnosis (1) Dysphagia: (2) Schatzki ring of distal esophagus: (3) History of ischemic cerebrovascular accident (CVA) with residual deficit: (4) COPD, moderate: (5) Graves disease: (6) Depression: Plan 64-year-old white female with PMH of ischemic CVA, obesity, right renal artery stenosis, prediabetes with metabolic syndrome, Graves' disease, hypothyroidism, hyperlipidemia, depression, disorder, moderate COPD, Jacques's esophagus, COPD, obstructive sleep apnea, and history of diverticulitis who presented with 3-day history of progressive dysphagia. #Dysphagia / Schatzki's ring of distal esophagus - S/p EGD with balloon dilation 12/19 - noted mild Schatzki's ring in distal esophagus and acute gastritis. Well-tolerated, no complications, tolerated diet after procedure - Continue esomeprazole 40 mg BID - Recommend follow-up with GI in 6-8 weeks #Cerebrovascular disease/prior CVA - Plavix held with EGD procedure - Instructed to resume Plavix 12/20 #COPD - Continue umeclidinium and Breo #Hypothyroidism - Continue home meds, routine outpatient follow-up #Depression - Continue Lexapro Dispo: Discharged home 12/19. Recommend PCP follow-up in 1-2 weeks Notes For Next Care Provider S/p EGD with balloon dilation secondary to Schatzki's ring in distal esophagus Follow-up with PCP in 1-2 weeks and with GI in 6-8 weeks Medication Changes From Visit Held Plavix, instructed to resume on 12/20 Admission HPI Per Admitting Provider patient is a very pleasant 64-year-old female who presents after about 3 days of progressive dysphagia and food sticking. She notes prior stricture, over the last few days with starting to feel food sticking more, has had vomiting whenever it feels like food has gotten stuck, has been able to drink some water but not a lot. Unfortunately her primary measurement superintendent is away until at least next week so she came to the ER because she felt like she would not be able to sustain as an outpatient until then. GI is already seen her and is planning on EGD tomorrow. She has no other symptoms. Discharge Exam General: No acute distress, nondiaphoretic, well-developed, well-nourished. Cardiac: Regular rate and rhythm without murmurs gallops or rubs. Pulm: Clear to auscultation bilaterally without wheezes, rales or rhonchi. Normal respiratory effort. 93% on room air. Abdominal: Soft, nontender, nondistended. Bowel sounds present. Neuro: A&O x3. No focal neurological deficits. Discharge Plan Discharge Items Patient Disposition: Home - Self-Care Reason For Visit: DYSPHAGIA Discharge Diagnosis: Dysphagia S/p EGD with dilation Activity: Resume your previous activity Non-emergency contact: Primary Care Provider and [employer] Call non-emergency contact if: you have any medication questions and your symptoms worsen Follow-up/Referrals: Dipti Huffman DO [Primary Care Provider] - (Follow-up in 1-2 weeks) Jaylan Dominguez MD [Physician] - (Follow-up in 6-8 weeks) Diet: Regular Diet Texture: Mechanical soft (ground) Diet Comment: Advance diet as tolerated Addtl Attending Provider Instructions: Marylou, You were observed overnight in the hospital due to dysphagia requiring evaluation by the GI team. This was likely due to recurrence of Schatzki's ring. You had an EGD with dilation with Dr. Dominguez from GI, and were found to h ave a mild Schatzki's ring in your lower esophagus and acute gastritis. You tolerated this well without any complications. There were no biopsies taken. Upon discharge from the hospital: * Follow a soft diet and advance as tolerated. * Resume your Plavix tomorrow, 12/20/24. * Continue your esomeprazole 40 mg BID. * Follow-up with your PCP in 1-2 weeks. * Follow-up with GI in 6-8 weeks. Please return to the hospital if you experience any of the following: Unable to swallow food or liquids, persistent vomiting, vomiting with bleeding, black tarry/maroon/red stools, chest pain, shortness of breath, passing out, confusion, or any other symptoms concerning for you. It was a pleasure taking care of you while you were in the hospital! Pending Studies at Discharge: No Stand-Alone Forms: My [facility] [employer], Smoking Cessation Medications and DC Order Prescriptions: Continued (DME) Oxygen Home Liters Per Minute See Rx Instructions .Route Qty: 1 3RF Rx Instructions: As directed. 2LPM overnight albuterol sulfate 90 mcg/actuation HFA aerosol inhaler 2 puff inhalation Q6H PRN (Reason: shortness of breath or wheezing) 90 Days Qty: 54 3RF thyroid (pork) 120 mg tablet 120 mg PO QAM Qty: 90 0RF ropinirole 0.5 mg tablet 1 mg PO HS 90 Days Qty: 180 1RF (DME) pen needle, diabetic [BD Ultra-Fine Elizabeth Pen Needle] 32 gauge x 5/32" needle See Rx Instructions miscellaneous .MEDSUPPLY Qty: 50 0RF Rx Instructions: As directed esomeprazole magnesium 40 mg capsule,delayed release(DR/EC) 40 mg PO BID Qty: 30 cyclobenzaprine 5 mg tablet 5 mg PO BID PRN (Reason: muscle spasm) Qty: 180 3RF Myrbetriq 50 mg tablet extended release 24 hr 50 mg PO DAILY Dulera 200-5 mcg/actuation HFA aerosol inhaler 2 puff inhalation BID Qty: 39 4RF Incruse Ellipta 62.5 mcg/actuation blister with device 1 inh inhalation Q24H Qty: 3 4RF modafinil 100 mg tablet 200 mg PO DAILY Qty: 180 3RF Patient Comments: QAM escitalopram oxalate 20 mg tablet 20 mg PO HS Held clopidogrel 75 mg tablet 75 mg PO QAM Qty: 90 3RF Hold Instructions: Resume on 12/20/24. Discharge Orders: Discharge Order (Routine); Ordered 12/19/24 Ordered By: Hanane Carreon Admission Data Admit Date/Time: 12/18/24 17:00 Attending Provider: Blake Gregory Admit Provider: Blake Gregory Primary Care Provider: Dipti Huffman Other Providers: Jaylan Dominguez; Blake Gregory Other Interventions: Discharge Summary Assessment (RN) Last Done: 12/19/24 12:22 Hospital Stay Data Consultations 12/18/24 15:29 Consult Gastroenterology Stat 12/18/24 15:49 ED Decision to Admit Stat 12/18/24 17:00 Consult Gastroenterology Routine Procedures Performed Operation Date: 12/19/24 16:45 Actual Procedures p EGD Dilatation - Jaylan Dominguez MD Pending Results Patient Have Any Pending Studies at Discharge: No Discharge Instructions Given to Patient (Per Discharging Provider) Marylou, You were observed overnight in the hospital due to dysphagia requiring evaluation by the GI team. This was likely due to recurrence of Schatzki's ring. You had an EGD with dilation with Dr. Dominguez from GI, and were found to have a mild Schatzki's ring in your lower esophagus and acute gastritis. You tolerated this well without any complications. There were no biopsies taken. Upon discharge from the hospital: * Follow a soft diet and advance as tolerated. * Resume your Plavix tomorrow, 12/20/24. * Continue your esomeprazole 40 mg BID. * Follow-up with your PCP in 1-2 weeks. * Follow-up with GI in 6-8 weeks. Please return to the hospital if you experience any of the following: Unable to swallow food or liquids, persistent vomiting, vomiting with bleeding, black tarry/maroon/red stools, chest pain, shortness of breath, passing out, confusion, or any other symptoms concerning for you. It was a pleasure taking care of you while you were in the hospital! Supervising Physician Co-Signing Physician Notes I personally examined the patient and verified all flood points of history and exam, discussed case, and agree with decision making with Shanika Carreon PA-C seen post EGD. feeling good ate well would like to go home vitals noted nad heent nc at mmm breathing unlabored no accessory muscles good effort skin no rashes no pallor or icterus neuro no focal deficits dysphagia/schatzki ring/retained food - now doing better post EGD/dilation -safe/stable for home -otherwise as above Total Time Total Time Spent Total Time Spent (In Minutes): Greater than 30 minutes spent completing this discharge process including direct patient care, medication reconciliation, documentation, review of labs and images, and coordination of care. Coding Level of Care Code 24181 INP/OBS DISCH >30 MIN Diagnoses Dysphagia R13.19 Dysphagia type: esophageal phase Schatzki ring of distal esophagus K22.2 History of ischemic cerebrovascular accident (CVA) with residual deficit I69.30 COPD, moderate J44.9 Graves disease E05.00 Depression F32.9
== END 2024-12-19 13:15 | disposition home or self-care (01) ==
LOC: 3N 13:30 → ED 13:30 → 3N 18:45
DX: J44.9 Chronic obstructive pulmonary disease, unspecified; Z79.899 Other long term (current) drug therapy; F32.A Depression, unspecified; Z87.891 Personal history of nicotine dependence; Z88.5 Allergy status to narcotic agent; I70.1 Atherosclerosis of renal artery; Z88.1 Allergy status to other antibiotic agents; Z88.2 Allergy status to sulfonamides; T18.128A Food in esophagus causing other injury, initial encounter; Z91.011 Allergy to milk products; Z87.19 Personal history of other diseases of the digestive system; E03.9 Hypothyroidism, unspecified; Z79.890 Hormone replacement therapy; K21.9 Gastro-esophageal reflux disease without esophagitis; K22.2 Esophageal obstruction; R73.03 Prediabetes; W44.F3XA Food entering into or through a natural orifice, initial encounter; E78.00 Pure hypercholesterolemia, unspecified; R91.8 Other nonspecific abnormal finding of lung field; I69.30 Unspecified sequelae of cerebral infarction; Z88.8 Allergy status to other drugs, medicaments and biological substances; E66.9 Obesity, unspecified; G47.33 Obstructive sleep apnea (adult) (pediatric); Z79.51 Long term (current) use of inhaled steroids; R94.31 Abnormal electrocardiogram [ECG] [EKG]; K59.00 Constipation, unspecified; E05.00 Thyrotoxicosis with diffuse goiter without thyrotoxic crisis or storm; Z68.36 Body mass index [BMI] 36.0-36.9, adult; Z88.0 Allergy status to penicillin